=== PATIENT | female | born 1980 | race Two or more races ===

== ENCOUNTER 2022-03-18 12:20 | Emergency (ER) | payer MEDICAID, SELFPAY ==
--- NOTE | ~2022-03-18 | XR_ITS ---
EXAMINATION: XR LUMBOSACRAL SPINE CLINICAL INFORMATION: Low back pain. COMPARISON: 11/27/2016 lumbar spine radiographs. TECHNIQUE: Three views of the lumbosacral spine. FINDINGS: The vertebral bodies and posterior elements are normal. Minimal multilevel marginal osteophyte formation. The disc spaces are preserved and the vertebral alignment is normal. The paraspinal soft tissues are normal. XR/XR lumbar spine 2-3V IMPRESSION: Unremarkable lumbar spine.
[2022-03-18 12:23] VITALS: BP 116/68; PULSE 71; RESP 18; TEMP 35.9; O2SAT 99; BMI 31.8
--- NOTE | 2022-03-18 13:06 | ED.BACK ---
HPI - Back Pain/Injury General Chief Complaint: Back Pain/Injury Stated Complaint: Low Back Pain No Injury Time Seen by Provider: 03/18/22 13:06 Source: patient Mode of arrival: ambulatory Limitations: no limitations History of Present Illness HPI Narrative: 41 y/o female with history of chronic low back pain x15 years s/p epidural who presents to the ER with an acute exacerbation for the last 5 days. She reports the pain started 5 days ago after she was trying to restrain her large dog who kept pulling on the leash. She felt the right lower portion of her back get pulled and she has had pain since. She reports the pain shoots down her right leg when she walks. She has a hard time changing positions and sleeping because of the pain. She has been taking naproxen and baclofen with minimal relief. She denies bowel or bladder in continence, leg weakness or saddle paresthesias. MD elicited complaint: back pain and back injury Pertinent past history: prior back pain Onset (ago): day(s) (5) Timing: progressively worsening Severity: severe Pain scale (0-10): 8 Similar Symptoms Previously: Yes Quality: sharp, spasming and throbbing Location: right lower back Radiation: buttocks and right upper leg Exacerbating factors: movement and walking Relieving factors: immobilization Context: turning/twisting and altercation (with dog) Associated symptoms: difficulty walking Treatments prior to arrival: NSAIDS and other medications Work related injury: No Related Data Previous Rx's Medication Instructions Recorded cyclobenzaprine 10 mg tablet 10 mg PO TID PRN #14 tab 03/18/22 ibuprofen 600 mg tablet 600 mg PO Q8H PRN #20 tab 03/18/22 prednisone 20 mg tablet 40 mg PO DAILY #10 tab 03/18/22 tramadol 50 mg tablet 50 mg PO Q8H PRN #5 tab 03/18/22 Allergies Allergy/AdvReac Type Severity Reaction Status Date / Time No Known Allergies Allergy Verified 03/18/22 12:28 Review of Systems Review of Systems: Constitutional: No Fever, No Chills Cardiovascular: No Chest Pain, No SOB Gastrointestinal: No Nausea, No Vomiting, No abdominal Pain Genitourinary: No Dysuria, No Urinary Frequency, No Hematuria, No incontinece Musculoskeletal: + joint pain, + Myalgias Skin: No Skin Lesions, No rash Neuro: No Weakness, No Numbness, No Dizziness, No Headache Psych: + Anxiety/Panic, No Depression Heme/Lymph: No Bruising, No Lymphadenopathy PMFSH Social History Social History Advance Directives: Yes Advance Directives Information Provided: Yes Advance Directives on File: No Patient : No Physical Exam Vital Signs: Vital Signs: Last Vital Signs Temp 96.6 F L 03/18/22 12:23 Pulse 71 03/18/22 12:23 Resp 18 03/18/22 12:23 BP 116/68 03/18/22 12:23 Pulse Ox 99 03/18/22 12:23 BMI result Body Mass Index 31.8 Appearance: Alert. Oriented X3. Appears in pain HEENT: normal inspection CVS: Normal heart rate and rhythm. Pulses normal. Respiratory: No respiratory distress. Skin: Skin warm and dry. Normal skin color. Normal skin turgor. No rashes. Back: normal inspection, right mid/lower back with tenderness and palpable spasm. pain with spinal flexion and extension. +straight leg raise test Extremities: normal inspection. normal ROM and DTRs Neuro: Oriented X 3. No motor deficit. No sensory deficit. Slow but steady gait Course Course Course Narrative: 41 yo female presenting with right lower back pain after trying to restrain her large dog 5 days ago. Pain radiates down back of right leg consistent with possible sciatica or lumbar radiulopathy. PT requesting x-rays. No red flag symptoms of LBP, will medicate and reassess. Reevaluation(s) Reevaluation #1: Pain improved. XR normal. Stable for d/c home with anti-inflammatories, muscle relaxers and f/u with PCP. Pt agrees with plan. Critical Care Time Critical Care Time Critical Care Time: No Discharge Plan Discharge Clinical Impression: Sciatica, Strain of lumbar region Patient Disposition: Home, Self-Care Instructions: Sciatica (ED), Low Back Strain (ED) Additional Instructions: Your x-ray today was normal. No bending, lifting or twisting. Use ice several times per day for 20 minutes at a time for the next 48 hours and then change to heat. Take medications as prescribed to help with pain and discomfort. Follow up with your Primary Care Doctor this week. If your pain worsens, if you develop new numbness, tingling, weakness, loss of function or incontinence call 911 or come back to the ER right away for evaluation. Prescriptions: New ibuprofen 600 mg tablet 600 mg PO Q8H PRN (Reason: pain) Qty: 20 0RF cyclobenzaprine 10 mg tablet 10 mg PO TID PRN (Reason: muscle spasm) Qty: 14 0RF prednisone 20 mg tablet 40 mg PO DAILY Qty: 10 0RF tramadol 50 mg tablet 50 mg PO Q8H PRN (Reason: severe pain (scale score 7-10)) Qty: 5 0RF
[2022-03-18] MEDS: Acetaminophen 325 MG TABLET 975 MG PO (13:43)
[2022-03-18] MEDS: oxyCODONE HCl Immed Release 5 MG TABLET PO (13:44)
[2022-03-18 14:52] VITALS: RESP 17
== END 2022-03-18 14:56 | disposition home or self-care (01) ==
PROVIDERS: Emergency Provider Emergency Medicine; PCP Internal Medicine
DX: S39.012A Strain of muscle, fascia and tendon of lower back, initial encounter (principal); M54.30 Sciatica, unspecified side; X50.1XXA Overexertion from prolonged static or awkward postures, initial encounter; Y93.9 Activity, unspecified; Y92.9 Unspecified place or not applicable; Y99.9 Unspecified external cause status
CPT/HCPCS: 72100; 99283; 99284

== ENCOUNTER 2022-09-01 16:48 | Emergency (ER) | payer MEDICAID, SELFPAY ==
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
--- NOTE | ~2022-09-01 | XR_ITS ---
EXAMINATION: XR HIP, RIGHT CLINICAL INFORMATION: Right hip pain status post fall COMPARISON: None TECHNIQUE: Two views of the right hip. One view of the pelvis. FINDINGS: No acute fracture or dislocation. Joint spaces are maintained. Calcified phleboliths in the pelvis. XR/XR hip RT min 2V IMPRESSION: No acute osseous abnormality.
[2022-09-01 17:00] VITALS: BP 125/81; PULSE 99; RESP 20; TEMP 36.7; O2SAT 98; BMI 33.8
[2022-09-01 18:21] LABS: MANUAL DIFF FLAG NO
[2022-09-01 18:23] LABS: Basophils Absolute Auto 0.1 X10*3/uL (0.0-0.2); Basophils Percent Auto 0.5 % (0-2); Eosinophils Absolute Auto 0.1 X10*3/uL (0.0-0.4); Eosinophils Percent Auto 0.5 % (0-4); Hematocrit 40.5 % (37.0-47.0); Hemoglobin 13.6 g/dl (12.0-16.0); Imm Gran Abs Auto 0.04 X10*3/uL (0.00-0.03); Imm Gran Pct Auto 0.3 % (0.0-0.4); Lymphocytes Absolute Auto 1.9 X10*3/uL (1.2-4.9); Lymphocytes Percent Auto 14.2 % (20-40); Mean Corpuscular HGB Conc 33.6 g/dl (31.0-35.0); Mean Corpuscular Hemoglobin 28.8 pg (27.0-33.0); Mean Corpuscular Volume 85.6 fL (80.0-98.0); Mean Platelet Volume 10.6 fL (9.4-12.3); Monocytes Absolute Auto 0.6 X10*3/uL (0.1-1.2); Monocytes Percent Auto 4.3 % (2-11); Neutrophils Absolute Auto 10.6 x10*3/uL (2.0-8.3); Neutrophils Percent Auto 80.2 % (45-73); Platelet Count 276 X10*3/uL (160-400); Red Blood Count 4.73 X10*6/uL (4.20-5.50); Red Cell Distribution Width 12.9 % (11.0-16.0); White Blood Count 13.3 X10*3/uL (4.8-10.8)
[2022-09-01 18:24] LABS: Amphetamine Screen Urine Not Detected (Not Detect); Barbiturates, Urine Not Detected (Not Detect); Benzodiazepines Screen Urine Not Detected (Not Detect); Cannabinoid Screen Urine Not Detected (Not Detect); Cocaine Screen Urine Not Detected (Not Detect); Fentanyl, urine Not Detected (Not Detect); Opiate Screen Urine Not Detected (Not Detect); Phencyclidine Screen Urine Not Detected (Not Detect)
[2022-09-01 18:28] LABS: COVID-19 Test Negative (Negative)
--- NOTE | 2022-09-01 18:33 | ED.GENADULT ---
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 <YENIFER George Last Filed: 09/01/22 20:47> Prescriptions: New lidocaine 5 % adhesive patch,medicated 1 patch topical DAILY PRN (Reason: pain) Qty: 15 0RF Rx Instructions: leave on most painful area for up to 12 hrs No Action oxcarbazepine 600 mg tablet 1,200 mg PO QAM oxcarbazepine 600 mg tablet 1,800 mg PO BEDTIME <YENIFER George Last Filed: 09/01/22 20:47> Referrals: Madeline Ferro MD [Primary Care Provider] - 2 days <YENIFER George Last Filed: 09/01/22 20:47> Stand Alone Forms: Work/School Release <YENIFER George Last Filed: 09/01/22 20:47>
[2022-09-01 18:35] LABS: Ethanol < 10 mg/dL
[2022-09-01 18:38] LABS: Alanine Aminotransferase 16 U/L (0-31); Albumin Level 4.5 g/dL (3.5-5.0); Alkaline Phosphatase 126 U/L (39-117); Anion Gap 14 (12-20); Aspartate Amino Transferase 20 U/L (5-31); Bilirubin Total 0.2 mg/dL (0.0-1.0); Blood Urea Nitrogen 11 mg/dL (9-16); Calcium 9.2 mg/dL (8.4-10.2); Carbon Dioxide 28 mmol/L (22-29); Chloride 102 mmol/L (96-108); Creatinine Clr Calc Pharmacy 97.5; Estimated Glomerular Filt Rate > 60; Glucose Random 137 mg/dL (60-115); Potassium 4.4 mmol/L (3.3-5.1); Sodium 140 mmol/L (135-145); Total Protein 7.6 g/dL (6.5-8.0)
[2022-09-01] MEDS: diazePAM 2 MG TABLET PO (18:59)
[2022-09-01 19:29] LABS: HCG Quantitative < 2 mIU/mL
[2022-09-01] MEDS: OXcarbazepine 300 MG TABLET 1800 MG PO (21:46)
[2022-09-02 00:18] VITALS: BP 104/59; PULSE 78; RESP 16; TEMP 36.5; O2SAT 98
== END 2022-09-02 00:58 | disposition home or self-care (01) ==
PROVIDERS: Physician Assistant Medical; Emergency Provider Emergency Medicine Emergency Medical Services; PCP Internal Medicine
DX: R07.89 Other chest pain (principal); M54.50 Low back pain, unspecified; R10.9 Unspecified abdominal pain; R51.9 Headache, unspecified; M54.6 Pain in thoracic spine; M54.2 Cervicalgia; M25.551 Pain in right hip; Z20.822 Contact with and (suspected) exposure to COVID-19; Z79.899 Other long term (current) drug therapy
CPT/HCPCS: 36415; 70450; 71250; 72125; 73502; 74176; 80053; 80307; 82077; 84702; 85025; 87635; 99283; 99284

== ENCOUNTER 2023-02-17 10:36 | Emergency (ER) | payer OTHER, SELFPAY ==
--- NOTE | ~2023-02-17 | XR_ITS ---
Examination: 1. Radiographs left humerus 2. Radiographs lumbar spine 3. Radiographs left hip 4. Radiographs left knee INDICATION: Injury COMPARISON: Lumbar spine x-rays November 27, 2016 TECHNIQUE: 2 views of the left humerus, 3 views of the lumbar spine, 2 views of the left hip (including frontal pelvis), and 4 views of the left knee were obtained. FINDINGS: Left humerus: No fracture of the left humerus. The left shoulder and elbow are grossly unremarkable. No radiopaque foreign body. Lumbar spine: Normal alignment of the lumbar spine. Lumbar vertebral body heights and disc spaces are well-maintained. Tiny osteophytes are scattered throughout the lumbar spine. Left hip: Visualized portion of the proximal left femur demonstrate no fracture. Left femoral head is well-seated within the acetabulum. Left femoral acetabular joint space is well-maintained. The pelvic ring is intact. Punctate calcifications within the pelvis are likely vascular in nature. Left knee: No fracture or dislocation of the left knee. No suprapatellar joint effusion. No significant degenerative changes. No focal soft tissue swelling of the anterior knee. XR/XR lumbar spine 2-3V IMPRESSION: 1. Unremarkable radiographs of the left humerus. 2. Mild degenerative changes of the lumbar spine without compression deformity. 3. Unremarkable radiographs of the left hip and left knee.
--- NOTE | ~2023-02-17 | XR_ITS ---
Examination: 1. Radiographs left humerus 2. Radiographs lumbar spine 3. Radiographs left hip 4. Radiographs left knee INDICATION: Injury COMPARISON: Lumbar spine x-rays November 27, 2016 TECHNIQUE: 2 views of the left humerus, 3 views of the lumbar spine, 2 views of the left hip (including frontal pelvis), and 4 views of the left knee were obtained. FINDINGS: Left humerus: No fracture of the left humerus. The left shoulder and elbow are grossly unremarkable. No radiopaque foreign body. Lumbar spine: Normal alignment of the lumbar spine. Lumbar vertebral body heights and disc spaces are well-maintained. Tiny osteophytes are scattered throughout the lumbar spine. Left hip: Visualized portion of the proximal left femur demonstrate no fracture. Left femoral head is well-seated within the acetabulum. Left femoral acetabular joint space is well-maintained. The pelvic ring is intact. Punctate calcifications within the pelvis are likely vascular in nature. Left knee: No fracture or dislocation of the left knee. No suprapatellar joint effusion. No significant degenerative changes. No focal soft tissue swelling of the anterior knee. XR/XR hip LT w PEL1V IMPRESSION: 1. Unremarkable radiographs of the left humerus. 2. Mild degenerative changes of the lumbar spine without compression deformity. 3. Unremarkable radiographs of the left hip and left knee.
--- NOTE | ~2023-02-17 | XR_ITS ---
Examination: 1. Radiographs left humerus 2. Radiographs lumbar spine 3. Radiographs left hip 4. Radiographs left knee INDICATION: Injury COMPARISON: Lumbar spine x-rays November 27, 2016 TECHNIQUE: 2 views of the left humerus, 3 views of the lumbar spine, 2 views of the left hip (including frontal pelvis), and 4 views of the left knee were obtained. FINDINGS: Left humerus: No fracture of the left humerus. The left shoulder and elbow are grossly unremarkable. No radiopaque foreign body. Lumbar spine: Normal alignment of the lumbar spine. Lumbar vertebral body heights and disc spaces are well-maintained. Tiny osteophytes are scattered throughout the lumbar spine. Left hip: Visualized portion of the proximal left femur demonstrate no fracture. Left femoral head is well-seated within the acetabulum. Left femoral acetabular joint space is well-maintained. The pelvic ring is intact. Punctate calcifications within the pelvis are likely vascular in nature. Left knee: No fracture or dislocation of the left knee. No suprapatellar joint effusion. No significant degenerative changes. No focal soft tissue swelling of the anterior knee. XR/XR humerus LT IMPRESSION: 1. Unremarkable radiographs of the left humerus. 2. Mild degenerative changes of the lumbar spine without compression deformity. 3. Unremarkable radiographs of the left hip and left knee.
--- NOTE | ~2023-02-17 | XR_ITS ---
Examination: 1. Radiographs left humerus 2. Radiographs lumbar spine 3. Radiographs left hip 4. Radiographs left knee INDICATION: Injury COMPARISON: Lumbar spine x-rays November 27, 2016 TECHNIQUE: 2 views of the left humerus, 3 views of the lumbar spine, 2 views of the left hip (including frontal pelvis), and 4 views of the left knee were obtained. FINDINGS: Left humerus: No fracture of the left humerus. The left shoulder and elbow are grossly unremarkable. No radiopaque foreign body. Lumbar spine: Normal alignment of the lumbar spine. Lumbar vertebral body heights and disc spaces are well-maintained. Tiny osteophytes are scattered throughout the lumbar spine. Left hip: Visualized portion of the proximal left femur demonstrate no fracture. Left femoral head is well-seated within the acetabulum. Left femoral acetabular joint space is well-maintained. The pelvic ring is intact. Punctate calcifications within the pelvis are likely vascular in nature. Left knee: No fracture or dislocation of the left knee. No suprapatellar joint effusion. No significant degenerative changes. No focal soft tissue swelling of the anterior knee. XR/XR knee LT 3V IMPRESSION: 1. Unremarkable radiographs of the left humerus. 2. Mild degenerative changes of the lumbar spine without compression deformity. 3. Unremarkable radiographs of the left hip and left knee.
[2023-02-17 10:41] VITALS: BP 104/67; PULSE 75; RESP 16; TEMP 36.1; O2SAT 99; BMI 33.8
[2023-02-17] MEDS: Acetaminophen 325 MG TABLET 975 MG PO (12:57)
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
== END 2023-02-17 14:13 | disposition home or self-care (01) ==
PROVIDERS: Emergency Provider Emergency Medicine; PCP Internal Medicine
DX: S39.012A Strain of muscle, fascia and tendon of lower back, initial encounter (principal); S83.92XA Sprain of unspecified site of left knee, initial encounter; S50.02XA Contusion of left elbow, initial encounter; V43.52XA Car driver injured in collision with other type car in traffic accident, initial encounter; Y93.89 Activity, other specified; Y92.410 Unspecified street and highway as the place of occurrence of the external cause; Y99.9 Unspecified external cause status
CPT/HCPCS: 72100; 73060; 73502; 73562; 99283

== ENCOUNTER 2023-03-05 14:18 | Outpatient (REF) | payer OTHER, MEDICAID, SELFPAY ==
--- NOTE | ~2023-03-05 | XR_ITS ---
EXAMINATION: XR WRIST, RIGHT CLINICAL INFORMATION: Right wrist pain COMPARISON: Right wrist films 05/19/2019. TECHNIQUE: Right wrist is imaged in 5 views. FINDINGS: Normal bony mineralization. Ulnar variance is neutral. There is no carpal joint narrowing or erosive change or chondrocalcinosis. Pronator quadratus fat pad appears normal. No fracture, dislocation, destructive process. XR/XR wrist RT min 3V IMPRESSION: Normal right wrist.
== END 2023-03-05 14:19 | disposition home or self-care (01) ==
LOC: HO.XRAY 14:18
PROVIDERS: PCP Internal Medicine; Visit Provider Internal Medicine
DX: M25.531 Pain in right wrist (principal)
CPT/HCPCS: 73110

== ENCOUNTER 2023-06-26 10:39 | Outpatient (REF) | payer OTHER, MEDICAID, SELFPAY ==
[2023-06-26 11:37] LABS: MANUAL DIFF FLAG NO
[2023-06-26 11:38] LABS: Basophils Percent Auto 0.6 % (0-2); Eosinophils Absolute Auto 0.1 X10*3/uL (0.0-0.4); Hematocrit 38.5 % (37.0-47.0); Hemoglobin 12.9 g/dl (12.0-16.0); Imm Gran Abs Auto 0.01 X10*3/uL (0.00-0.03); Imm Gran Pct Auto 0.1 % (0.0-0.4); Lymphocytes Absolute Auto 2.2 X10*3/uL (1.2-4.9); Lymphocytes Percent Auto 32.1 % (20-40); Mean Corpuscular HGB Conc 33.5 g/dl (31.0-35.0); Mean Corpuscular Hemoglobin 28.7 pg (27.0-33.0); Mean Corpuscular Volume 85.6 fL (80.0-98.0); Mean Platelet Volume 10.5 fL (9.4-12.3); Monocytes Absolute Auto 0.4 X10*3/uL (0.1-1.2); Monocytes Percent Auto 5.8 % (2-11); Neutrophils Absolute Auto 4.1 x10*3/uL (2.0-8.3); Neutrophils Percent Auto 60.4 % (45-73); Platelet Count 260 X10*3/uL (160-400); Red Cell Distribution Width 12.6 % (11.0-16.0); White Blood Count 6.7 X10*3/uL (4.8-10.8)
[2023-06-26 12:13] LABS: Estimated Average Glucose 97 mg/dL
[2023-06-26 12:47] LABS: Alanine Aminotransferase 11 U/L (0-31); Albumin Level 4.3 g/dL (3.5-5.0); Alkaline Phosphatase 113 U/L (39-117); Anion Gap 12 (12-20); Aspartate Amino Transferase 14 U/L (5-31); Bilirubin Direct 0.1 mg/dL (0.0-0.5); Bilirubin Total 0.3 mg/dL (0.0-1.0); Blood Urea Nitrogen 9 mg/dL (9-16); Calcium 9.2 mg/dL (8.4-10.2); Carbon Dioxide 26 mmol/L (22-29); Chloride 107 mmol/L (96-108); Cholesterol 210 mg/dL; Estimated Glomerular Filt Rate > 60; Glucose Random 87 mg/dL (60-115); HDL Cholesterol 47 mg/dL; LDL Cholesterol Calculated 150 mg/dl; Potassium 4.3 mmol/L (3.3-5.1); Sodium 141 mmol/L (135-145); Total Protein 7.7 g/dL (6.5-8.0); Triglycerides 68 mg/dL
[2023-06-26 13:10] LABS: Vitamin D 25-OH Total 21.4 ng/mL (>30)
== END 2023-06-26 10:40 | disposition home or self-care (01) ==
LOC: HO.HHCL 10:39
PROVIDERS: Visit Provider Internal Medicine
DX: Z00.00 Encounter for general adult medical examination without abnormal findings (principal); G40.909 Epilepsy, unspecified, not intractable, without status epilepticus
CPT/HCPCS: 36415; 80048; 80061; 80076; 82306; 83036; 85025

== ENCOUNTER 2024-02-15 12:26 | Emergency (ER) | payer MEDICAID, SELFPAY ==
--- NOTE | ~2024-02-15 | XR_ITS ---
EXAMINATION: XR LUMBOSACRAL SPINE CLINICAL INFORMATION: Atraumatic low lumbar pain. COMPARISON: Radiograph lumbar spine 02/17/2023. TECHNIQUE: Three views of the lumbosacral spine. FINDINGS: No evidence of acute compression deformity or traumatic subluxation. Stable trace retrolisthesis of L5 on S1. Unchanged mild intervertebral disc height loss and facet arthropathy at L4-L5 and L5-S1 with suggestion of mild neural foraminal encroachment at L5-S1. No significant paraspinal soft tissue abnormality. XR/XR lumbar spine 2-3V IMPRESSION: 1. No acute fractures or traumatic subluxation. 2. Mild lumbar spondylosis at L4-L5 and L5-S1.
[2024-02-15 13:07] VITALS: BP 118/75; BP 140/100; PULSE 80; PULSE 84; RESP 20; TEMP 36.8; O2SAT 100; O2SAT 98; BMI 29.0
[2024-02-15] MEDS: Lidocaine 4 % Patch ADH..PATCH 1 PATCH TRANSDERMA (14:27)
[2024-02-15] MEDS: Ketorolac Tromethamine 30 MG/ML VIAL IM (14:27)
[2024-02-15] MEDS: Cyclobenzaprine HCl 10 MG TABLET PO (14:28)
[2024-02-15 14:32] VITALS: BP 130/65; PULSE 66; RESP 20; O2SAT 100
--- NOTE | 2024-02-15 15:21 | ED_ITS ---
HPI - Back Pain/Injury General Chief Complaint: Back Pain/Injury Stated Complaint: Back Pain Time Seen by Provider: 02/15/24 12:55 Source: patient, EMS, RN notes reviewed and old records reviewed Mode of arrival: EMS Limitations: no limitations History of Present Illness HPI Narrative: 43 year old female with no significant pmhx presents to the ED today via EMS for evaluation of acute low back pain beginning just prior to arrival. She states she had just walked into her room and went to reach for something on her bed when she felt sudden pain to her right lower back. Admits to feeling a popping sensation. She immediately called EMS and was transported to the hospital. She now reports that pain is beginning to radiate down her right leg. She has not been able to ambulate since due to pain. She did not take any [id number] pain medications prior to arrival. Denies history of chronic back problems. Denies injury or trauma to the back. Denies previous spinal surgeries. Denies IV drug use. Denies fever, chills, numbness/tingling/weakness of the lower extremities, saddle anesthesia, bowel or bladder incontinence or retention, dysuria, hematuria. Related Data Home Medications Medication Instructions Recorded Confirmed oxcarbazepine 600 mg tablet 1,200 mg PO QAM 09/01/22 09/01/22 oxcarbazepine 600 mg tablet 1,800 mg PO BEDTIME 09/01/22 09/01/22 Previous Rx's Medication Instructions Recorded lidocaine 5 % topical patch 1 patch topical DAILY PRN pain #15 09/02/22 ea ibuprofen 600 mg tablet 600 mg PO Q6H PRN pain #20 tabs 02/17/23 tramadol 50 mg tablet 50 mg PO Q8H PRN pain #10 tabs 02/17/23 cyclobenzaprine 5 mg tablet 5 mg PO Q8H PRN muscle spasm #10 02/15/24 tabs lidocaine 5 % topical patch 1 patch topical DAILY #15 ea 02/15/24 (Lidoderm) naproxen 500 mg tablet 500 mg PO Q8-12H PRN pain (scale 02/15/24 score 4-6) #14 tabs nitrofurantoin macrocrystal 100 mg 100 mg PO BID 5 days #10 caps 02/15/24 capsule Allergies Allergy/AdvReac Type Severity Reaction Status Date / Time No Known Allergies Allergy Verified 02/15/24 13:10 Review of Systems Review of Systems: Constitutional: No fever, chills, fatigue, night sweats, weight changes ENT/Mouth: No ear pain, hearing loss, nasal congestion, sinus pain, rhinorrhea, sore throat Eyes: No eye pain, swelling, redness, vision changes, discharge Cardio: No chest pain, palpitations, HALEY, orthopnea, peripheral edema Pulm: No SOB, cough, sputum, wheezing, dyspnea, hemoptysis GI: No nausea, vomiting, hematemesis, abdominal pain, diarrhea, constipation, hematochezia, melena : No irregular bleeding, dysuria, frequency, urgency, hesitancy, hematuria, flank pain, urinary flow changes, urinary incontinence or retention MSK: +back pain, No neck pain, joint pain, myalgias Skin: No lesions, rashes Neuro: No weakness, numbness, paresthesias, LOC, dizziness, headache All other systems reviewed and are negative. [facility] Past Medical History Attestation statement: The following information was validated with the patient. Source: old records reviewed and nursing notes reviewed Social History Social History Advance Directives: No Advance Directives Information Provided: Yes Physical Exam Vital Signs: Vital Signs: Last Vital Signs Temp 98.2 F 02/15/24 16:57 Pulse 59 02/15/24 16:57 Resp 18 02/15/24 16:57 BP 107/60 02/15/24 16:57 Pulse Ox 99 02/15/24 16:57 O2 Del Method Room Air 02/15/24 16:57 BMI result Body Mass Index 29.0 Vital signs stable, afebrile Const: General: cooperative, healthy appearing, comfortable, no acute distress, alert, awake and Physically active Orientation/consciousness: patient oriented x3 HEENT: Head: Yes normal to inspection, Yes normocephalic and Yes atraumatic Eyes: General: appearance normal, both eyes and all related structures Conjunctivae: conjunctivae normal Sclerae: sclerae normal Pupils: Equal, round and reactive pupils present EOM: EOMs intact bilaterally Neck: Other: + no cervical midline spinous tenderness or step-off deformity. Neck: Yes normal visual inspection, Yes full ROM and Yes no meningeal signs Resp: Effort & Inspection: normal respiratory effort Auscultation: clear to auscultation bilaterally Cardio: Rate: regular rate Rhythm: regular rhythm GI: Inspection: Yes normal to inspection Palpation (GI): Soft to palpation and nontender : General: Yes no CVA tenderness Back/Spine/Pelvis: Other: + no midline spinous tenderness or step- off deformity. there is right lumbar paraspinous tenderness to palpation without palpable deformity or masses. Back: no CVA tenderness Skin: General skin exam: no rashes or lesions noted Neuro: Other: Strength 5/5 intact throughout.? No saddle anesthesia.? Sensation intact to light touch.? Neurovascular intact distally.? Antalgic gait secondary to pain. General: patient oriented x3 and no meningeal signs Cranial nerves: Yes Equal, round and reactive pupils present Gait exam (Neuro): Normal gait present Deep tendon reflexes (DTR's): Right patellar reflex intensity grade: 2+ and Left patellar reflex intensity grade: 2+ Pupils: Normal pupillary reactivity/response: bilateral Course Course Course Narrative: 1635-- On re-evaluation, patient reports pain improvement with lidocaine, Toradol, Flexeril. She has been ambulating to bathroom with steady gait with some assistance from hydro plant technician. I discussed imaging results with patient. Patient likely has MSK sprain/strain of the lumbar paraspinal muscles. Will send Flexeril, naproxen, lidocaine patches to pharmacy. Urine with positive nitrites and 4+ bacteria. negative. Will send nitrofurantoin to pharmacy to treat for UTI. Patient has remained stable throughout ED visit today. Discussed worrisome signs and symptoms and when to return to the ED. All questions answered at this time. Patient is agreeable with disposition and stabl e for discharge. Medications Administered Discontinued Medications Generic Name Dose Route Start Last Admin Trade Name Freq PRN Reason Stop Dose Admin Cyclobenzaprine HCl 10 mg 02/15/24 13:34 02/15/24 14:28 Cyclobenzaprine Hcl 10 Mg Tablet PO 02/15/24 13:35 10 mg ONCE ONE Administration Ketorolac Tromethamine 30 mg 02/15/24 13:34 02/15/24 14:27 Ketorolac Tromethamine 30 Mg/Ml Vial IM 02/15/24 13:35 30 mg ONCE ONE Administration Lidocaine 1 patch 02/15/24 13:34 02/15/24 14:27 Lidocaine 4 % Patch Adh..Patch TRANSDERMA 02/15/24 13:35 1 patch ONCE ONE Administration Protocol Medical Decision Making Medical Decision Making [facility] Narrative: 43 year old female with no significant pmhx presents to the ED today via EMS for evaluation of acute low back pain beginning just prior to arrival. Vital signs are stable, afebrile. Patient is lying flat on her back on the exam bed, tearful. no midline spinous tenderness or step-off deformity. there is right lumbar paraspinous tenderness to palpation without palpable deformity or masses. Strength 5/5 intact throughout.? No saddle anesthesia.? Sensation intact to light touch.? Neurovascular intact distally.? Antalgic gait secondary to pain. 2+ patellar DTRs bilaterally. Differential diagnosis includes muscle sprain/strain, muscle spasm, fracture, subluxation, disc herniation, sciatica, UTI, nephrolithiasis, renal colic. Unli ryder cord compression, cauda equina, Guillain-Pownal, epidural abscess. Plan for imaging, pain control, and re-evaluation. Differential Diagnosis Differential Diagnoses: The differential diagnosis associated with the presentation includes as above Admission/Observation Not indicated. Lab Data [facility] Lab Attestation statement: I reviewed the patient's lab results. as above. Labs: Lab Results 02/15/24 Range/Units 15:20 Urine Color Yellow Urine Appearance Clear Urine pH 8.0 (5.0-9.0) Ur Specific [place] 1.015 (1.005-1.025) Urine Protein Negative (Neg-Trace) mg/dL Urine Glucose (UA) Negative (Negative) mg/dL Urine Ketones Negative (Negative) mg/dL Urine Blood Negative (Negative) Urine Nitrite Positive H (Negative) Ur Leukocyte Esterase Negative (Negative) Urine RBC 0-2 (0-2) /HPF Urine WBC 0-5 (0-5) /HPF Ur Squamous Epith Cells 0-2 (0-2) /HPF Urine Bacteria 4+ (None Seen) Hyaline Casts 0-2 (0-2) /LPF Urine Test NEGATIVE (NEGATIVE) Independent Interpretation I performed an independent interpretation of an: Plain X-Ray Interpretation: I have reviewed x-ray lumbar spine and agree with radiologist's interpretation. Radiology Impression Discussion of test interpretation with radiology: I have reviewed the radiologist's reading. Radiologist Impression: EXAMINATION: XR LUMBOSACRAL SPINE CLINICAL INFORMATION: Atraumatic low lumbar pain. COMPARISON: Radiograph lumbar spine 02/17/2023. TECHNIQUE: Three views of the lumbosacral spine. FINDINGS: No evidence of acute compression deformity or traumatic subluxation. Stable trace retrolisthesis of L5 on S1. Unchanged mild intervertebral disc height loss and facet arthropathy at L4-L5 and L5-S1 with suggestion of mild neural foraminal encroachment at L5-S1. No significant paraspinal soft tissue abnormality. XR/XR lumbar spine 2-3V IMPRESSION: 1. No acute fractures or traumatic subluxation. 2. Mild lumbar spondylosis at L4-L5 and L5-S1. External Record Review External record reviewed: Inpatient record Prescription Management I considered prescription management with: Pain Medication, Antibiotic (Nitrofurantoin) and Other (Muscle relaxer, steroid) Social Determinants Patient?s care significantly limited by Social Determinants of Health including: Other Social Determinant of Health Discharge Plan Discharge Clinical Impression: Strain of lumbar region, Lumbar radiculopathy, UTI (urinary tract infection) Patient Disposition: Home, Self-Care Instructions: Muscle Strain (ED), Urinary Tract Infection in Women (ED), Acute Low Back Pain (ED), Lower Back Exercises (ED) Additional Instructions: Your imaging studies today did not show acute fracture. Your pain is likely musculoskeletal. Avoid bending, lifting, or twisting. Use ice several times per day for 20 minutes at a time for the next 48 hours and then change to heat. Flexeril is a muscle relaxer. Take this at night as it makes you drowsy. Do not drive, drink alcohol, or operate machinery while taking it. Naproxen is an anti-inflammatory / pain medication. Take with food. Do not take this with Ibuprofen. Lidoderm patches are numbing patches. Apply to painful areas. In addition you may take Tylenol at home. If your pain worsens, if you develop new numbness, tingling, weakness, loss of bowel or bladder function call 911 or return to the ER immediately for evaluation. Your urine today was positive for infection. Nitrofurantoin is an antibiotic that has been sent to your pharmacy. Take this as prescribed and do not miss any doses. You must complete the entire course of antibiotics. If you do not, there is a risk of the infection coming back or worsening. Follow up with your primary care provider as needed. If you develop a fever or new/ worsening symptoms call 911 or come back to the ER for further evaluation. Prescriptions: New nitrofurantoin macrocrystal 100 mg capsule 100 mg PO BID 5 Days Qty: 10 0RF Rx Instructions: must administer with a meal/food cyclobenzaprine 5 mg tablet 5 mg PO Q8H PRN (Reason: muscle spasm) Qty: 10 0RF lidocaine [Lidoderm] 5 % adhesive patch,medicated 1 patch topical DAILY Qty: 15 0RF Rx Instructions: leave on most painful area for up to 12 hrs naproxen 500 mg tablet 500 mg PO Q8-12H PRN (Reason: pain (scale score 4-6)) Qty: 14 0RF No Action oxcarbazepine 600 mg tablet 1,200 mg PO QAM oxcarbazepine 600 mg tablet 1,800 mg PO BEDTIME lidocaine 5 % adhesive patch,medicated 1 patch topical DAILY PRN (Reason: pain) Qty: 15 0RF Rx Instructions: leave on most painful area for up to 12 hrs ibuprofen 600 mg tablet 600 mg PO Q6H PRN (Reason: pain) Qty: 20 0RF tramadol 50 mg tablet 50 mg PO Q8H PRN (Reason: pain) Qty: 10 0RF [place] [facility] [place] [facility] [place] [facility]] Stand Alone Forms: Work/School Release Interventions: ED Discharge Assessment Last Done: 02/15/24 16:57 Discharge Date/Time: 02/15/24 16:58
[2024-02-15 15:28] LABS: Appearance Urine Clear; Color Urine Yellow; Glucose Urine UA Negative (Negative); Leukocyte Esterase Urine Negative (Negative); Nitrite Urine Positive (Negative); Specific Gravity - Urine 1.015 (1.005-1.025); UMIC TRIGGER UACC YES; Urine Blood Negative (Negative); Urine Ketones Negative (Negative); Urine Protein Negative (Neg-Trace)
[2024-02-15 15:36] LABS: UPreg QC Valid YES; Urine Pregnancy NEGATIVE (NEGATIVE)
[2024-02-15 16:30] LABS: Bacteria Urine 4+ (None Seen); Hyaline Casts Urine 0-2 /LPF (0-2); RBC Urine 0-2 /HPF (0-2); Squamous Epithelial Cell Urine 0-2 /HPF (0-2); UACC Culture Trigger YES; WBC Urine 0-5 /HPF (0-5)
[2024-02-15 16:48] VITALS: BP 107/60; PULSE 59; RESP 18; TEMP 36.8; O2SAT 99
[2024-02-15 16:57] VITALS: BP 107/60; PULSE 59; RESP 18; TEMP 36.8; O2SAT 99
== END 2024-02-15 16:58 | disposition home or self-care (01) ==
PROVIDERS: Physician Assistant Medical; Emergency Provider Emergency Medicine Emergency Medical Services; PCP Internal Medicine
DX: M54.16 Radiculopathy, lumbar region (principal); N39.0 Urinary tract infection, site not specified; S39.012A Strain of muscle, fascia and tendon of lower back, initial encounter; X58.XXXA Exposure to other specified factors, initial encounter; Y93.9 Activity, unspecified; Y92.9 Unspecified place or not applicable; Y99.9 Unspecified external cause status
CPT/HCPCS: 72100; 81001; 81025; 87086; 87088; 87186; 96372; 99283; 99284; J1885

== ENCOUNTER 2024-03-09 | Emergency (ER) | payer MEDICAID, SELFPAY ==
[2024-03-09 00:22] VITALS: BP 106/53; PULSE 106; RESP 20; TEMP 36.1; O2SAT 100; BMI 35.4
--- NOTE | 2024-03-09 00:32 | PC.NURSE ---
Addendum entered by Corina Pratt 03/09/24 00:34: community product specialist aware of patient status & inability to obtain EKG or labs at this time. Original Note: Attempted but unable to perform EKG due to the patient flailing. Intermittently yelling out. Forgetful of where she is and what she's experiencing. With family at this time. Occasionally standing up and screaming. Swatting at staff during attempted EKG & lab draw.
--- NOTE | 2024-03-09 01:24 | PC.NURSE ---
Patient left without treatment. This RN encouraged the patient and family to remain for evaluation, but patient and family both refused. Patient stated I just want to sleep, I don't need to be here anymore. Refused and left ED without treatment/ED provider evaluation. procedures rn aware.
== END 2024-03-09 01:25 | disposition left against medical advice (07) ==
PROVIDERS: Emergency Provider Emergency Medicine; PCP Internal Medicine
DX: R41.0 Disorientation, unspecified (principal)
CPT/HCPCS: 99281

== ENCOUNTER 2024-03-29 17:56 | Emergency (ER) | payer MEDICAID, SELFPAY ==
--- NOTE | ~2024-03-29 | XR_ITS ---
EXAMINATION: XR ANKLE, RIGHT CLINICAL INFORMATION: Twisted ankle COMPARISON: None available. TECHNIQUE: AP, lateral, and mortise views of the right ankle. FINDINGS: Acute, nondisplaced avulsion fracture of the base of the fifth metatarsal (pseudo-Pitts fracture). No evidence of malalignment. Ankle mortise is congruent. Talar dome is intact. Incidental os peroneum No tibiotalar joint effusion. Soft tissues are unremarkable. XR/XR ankle RT 2V IMPRESSION: Acute, nondisplaced avulsion fracture of the base of the fifth metatarsal (pseudo-Pitts fracture).
[2024-03-29 19:09] VITALS: BP 119/75; PULSE 67; RESP 16; TEMP 36.4; O2SAT 99; BMI 35.1
--- NOTE | 2024-03-29 20:27 | ED.LOWEXIN ---
HPI - Extremity Injury (Lower) General Chief Complaint: Extremity Injury, Lower Stated Complaint: twisted ankle last night Time Seen by Provider: 03/29/24 19:29 Source: patient Mode of arrival: wheelchair Limitations: no limitations History of Present Illness HPI Narrative: 43-year-old female with no significant past medical history presents emergency department with complaints of right ankle pain after rolling last night. She reports she has been using [id number] ibuprofen no relief in symptoms. She reports difficulty with ambulation and range of motion secondary to pain. She denies any significant deformity, swelling, erythema, or ecchymosis. Pertinent positives and negatives discussed in the HPI Related Data Home Medications ?Medication ?Instructions ?Recorded ?Confirmed oxcarbazepine 600 mg tablet 1,200 mg PO QAM 09/01/22 09/01/22 oxcarbazepine 600 mg tablet 1,800 mg PO BEDTIME 09/01/22 09/01/22 Previous Rx's ?Medication ?Instructions ?Recorded lidocaine 5 % topical patch 1 patch topical DAILY PRN pain #15 09/02/22 ea ibuprofen 600 mg tablet 600 mg PO Q6H PRN pain #20 tabs 02/17/23 tramadol 50 mg tablet 50 mg PO Q8H PRN pain #10 tabs 02/17/23 cyclobenzaprine 5 mg tablet 5 mg PO Q8H PRN muscle spasm #10 02/15/24 tabs lidocaine 5 % topical patch 1 patch topical DAILY #15 ea 02/15/24 (Lidoderm) naproxen 500 mg tablet 500 mg PO Q8-12H PRN pain (scale 02/15/24 score 4-6) #14 tabs nitrofurantoin macrocrystal 100 mg 100 mg PO BID 5 days #10 caps 02/15/24 capsule Allergies Allergy/AdvReac Type Severity Reaction Status Date / Time No Known Allergies Allergy Verified 03/29/24 19:13 Review of Systems Review of Systems: Yes all other systems are reviewed and are negative [facility] Social History Social History Advance Directives: No Advance Directives Information Provided: No Do you have a plan to hurt others: No Plan Physical Exam Vital Signs: Vital Signs: Last Vital Signs Temp 97.6 F 03/29/24 19:09 Pulse 67 03/29/24 19:09 Resp 16 03/29/24 19:09 BP 119/75 03/29/24 19:09 Pulse Ox 99 03/29/24 19:09 O2 Del Method Room Air 03/29/24 19:09 BMI result Body Mass Index 35.1 Nursing notes and vital signs reviewed. GENERAL APPEARANCE: A&0 x 4, generally well appearing, no acute distress HENMT: Normal to inspection, atraumatic, face symmetrical. Normal external ears, nose, and oropharynx clear. EYE: PERRLA, EOM intact, structures appear normal NECK: Supple without stiffness or restricted ROM. HEART: Normal rate and regular rhythm, normal S1/S2, no M/R/G LUNGS: LS CTA, moving air well. Able to speak in complete sentences. No crackles, wheezes, or rhonchi auscultated BACK: No CVAT, no obvious deformity EXTREMITIES: Decreased range of motion right ankle. Normal capillary refill. NEUROLOGICAL: Alert and oriented, moving all 4 extremities with equal strength. CN not formally tested but appearing grossly intact. Observed to ambulate with normal gait. Cognition normal SKIN: Warm and dry without any lesions, rash, or visible sores Medical Decision Making Medical Decision Making [facility] Narrative: Old records reviewed for previous imaging, lab studies, ECGs, and notes. Patient was assessed the emergency department with no acute distress or toxicity noted. X-ray right ankle completed which I have independently interpreted as negative for acute fractures. Patient's symptoms are consistent with an acute strain or sprain an Brad wrap applied. Patient educated to rest, ice, compress, and elevate ankle for comfort. Patient is safe for discharge at this time with plan for [id number] Tylenol and/or NSAID such as ibuprofen or naproxen for fever/discomfort with dosing as per packaging. HPI, PE, diagnostics, and plan discussed with patient and family with no unanswered questions at this time. Strict return precautions given to return to the emergency department with new, worsening, or concerning emergent symptoms. Recommended to follow-up with there primary care provider in 24-48 hours for further treatment and management. Differential Diagnosis Differential Diagnoses: The differential diagnosis associated with the presentation includes But not limited to contusion, strain, sprain, fracture, dislocation Independent Interpretation I performed an independent interpretation of an: Plain X-Ray Discharge Plan Discharge Clinical Impression: Ankle sprain and strain Patient Disposition: Home, Self-Care Instructions: Ankle Sprain (ED), Ankle Strain (ED), R.I.C.E. Treatment (ED), Crutch Instructions (ED) Prescriptions: No Action oxcarbazepine 600 mg tablet 1,200 mg PO QAM oxcarbazepine 600 mg tablet 1,800 mg PO BEDTIME lidocaine 5 % adhesive patch,medicated 1 patch topical DAILY PRN (Reason: pain) Qty: 15 0RF Rx Instructions: leave on most painful area for up to 12 hrs ibuprofen 600 mg tablet 600 mg PO Q6H PRN (Reason: pain) Qty: 20 0RF tramadol 50 mg tablet 50 mg PO Q8H PRN (Reason: pain) Qty: 10 0RF nitrofurantoin macrocrystal 100 mg capsule 100 mg PO BID 5 Days Qty: 10 0RF Rx Instructions: must administer with a meal/food cyclobenzaprine 5 mg tablet 5 mg PO Q8H PRN (Reason: muscle spasm) Qty: 10 0RF lidocaine [Lidoderm] 5 % adhesive patch,medicated 1 patch topical DAILY Qty: 15 0RF Rx Instructions: leave on most painful area for up to 12 hrs naproxen 500 mg tablet 500 mg PO Q8-12H PRN (Reason: pain (scale score 4-6)) Qty: 14 0RF Referrals: Madeline Ferro MD [Primary Care Provider] - Stand Alone Forms: Work/School Release Print Language: Wallisian
[2024-03-29 21:30] VITALS: BP 113/66; PULSE 68; RESP 18; TEMP 36.6; O2SAT 100
--- NOTE | 2024-03-29 23:33 | PC.NURSE ---
pipeline technician noted Pt was not in room at time of revital. Pt LWCT approximately at 2210.
== END 2024-03-29 22:20 | disposition left against medical advice (07) ==
PROVIDERS: Emergency Provider Emergency Medicine; PCP Internal Medicine
DX: S93.401A Sprain of unspecified ligament of right ankle, initial encounter (principal); S96.911A Strain of unspecified muscle and tendon at ankle and foot level, right foot, initial encounter; X50.1XXA Overexertion from prolonged static or awkward postures, initial encounter; Y93.9 Activity, unspecified; Y92.9 Unspecified place or not applicable; Y99.9 Unspecified external cause status
CPT/HCPCS: 73600; 99282; 99283

== ENCOUNTER 2024-04-21 08:02 | Outpatient (AMB) | payer MEDICAID, SELFPAY ==
--- NOTE | 2024-04-21 08:31 | MHC.OFFVIS ---
Vital Signs 04/21/24 08:35 Height 5 ft 2 in Weight 192 lb BMI 35.1 Intake Visit Reasons: Fc- fx of 5th metatarsal bone of RT foot Intake Note: Leslie is a 43 year old female who presents today for a evaluation of her right ankle sprain/ foot , DOI 03/28/24. Patient reports she rolled her ankle when she was walking with high heel. She states that he pain is a little better, however when she is ambulating she tends to feel a bit sore. Pain is on the lateral aspect of the foot. Allergies No Known Allergies Allergy (Verified 04/21/24 08:34) HPI HPI Fc- fx of 5th metatarsal bone of RT foot: Details: 43-year-old female who presents in the office today, as a new patient, for an evaluation of right ankle pain. Patient presented to the ED on 03/29/2024 status post rolling her ankle on 03/28/2024. X-rays were obtained. She was placed in an FOUZIA wrap and encouraged to rest, ice, compress, and elevate the right ankle. While in the office today the patient reports she rolled her right ankle when walking in high heels. She reports her pain has slightly improved. However, she states when ambulating she feels a bit sore. She reports her pain is on the lateral aspect of the right foot. [facility] Social History (Updated 04/21/24 @ 08:35 by Derick Zeng) Alcohol intake: current Alcohol intake frequency: holidays/special occasions only Patient Tobacco Use Status: Never used Tobacco Current occupational status: unemployed Review of Systems Const All systems reviewed & are unremarkable except as noted in HPI and below Physical Exam Vital Signs: BMI result Body Mass Index 35.1 Const General: cooperative and no acute distress Orientation/consciousness: patient oriented x3 Resp Effort & Inspection: normal respiratory effort and able to speak in complete sentences Cardio Peripheral pulses: Peripheral pulses 2+ throughout Skin General skin exam: no rashes or lesions noted Neuro General: patient oriented x3 Extrem Other: Right foot/ankle: Mild edema over the base of the 5th metatarsal, accompanied by tenderness to palpation. Able to dorsiflex, plantarflex, pronate and supinate. Sensation intact. Pedal pulse intact. Office Procedures Fracture Care Fracture Billing Code: Fracture Billing Code Assessment & Plan Assessment & Plan (1) Toe fracture, right: Comment: Pseudo-Ren fracture right 5th metatarsal Code(s): S92.911A - Unspecified fracture of right toe(s), initial encounter for closed fracture Category: Medical Qualifiers: Encounter type: initial encounter Fracture alignment: nondisplaced Fracture type: closed Phalanx: unspecified phalanx Toe: lesser toe Qualified Code(s): S92.504A - Nondisplaced unspecified fracture of right lesser toe(s), initial encounter for closed fracture Plan Ms. Tico Montalvo is a 43-year-old female who presents in the office today, as a new patient, for an evaluation of right ankle pain. Patient presented to the ED on 03/29/2024 status post rolling her ankle on 03/28/2024. X-rays were obtained. She was placed in an FOUZIA wrap and encouraged to rest, ice, compress, and elevate the right ankle. While in the office today the patient reports she rolled her right ankle when walking in high heels. She reports her pain is on the lateral aspect of the right foot with slightly improved. However, she states when ambulating her right ankle feels a bit sore. Patient was placed in a short walking boot, off the shelf. She may weight bear as tolerated. I demonstrated exercises while in the office today she can perform at home out of the boot multiple times daily. We discussed at her follow-up appointment we will evaluate her for stiffness with the possibility of a referral to formal physical therapy. Follow-up will be in 4 weeks with repeat x-rays, or sooner if needed. X-rays of the right ankle which were obtained while in the office today and were reviewed by me, Natalie Olmedo PA-C, redemonstrated a pseudo-ren fracture of the right 5th metatarsal. X-rays of the right ankle, obtained on 03/29/2024, revealed: Acute, nondisplaced avulsion fracture of the base of the fifth metatarsal (pseudo-Ren fracture). Orders: Orders XR foot RT min 3V Today M79.673 - Pain in unspecified foot Patient Instructions: Scribed by Janessa Sage medical doctor nuclear medicine, for Natalie Olmedo PA-C on 04/21/2024 at 8:08 am, EST. Coding Level of Care Code New Pt Level 4 (28277) Diagnoses Closed nondisplaced fracture of phalanx of lesser toe of right foot, unspecified phalanx, initial encounter S92.504A Encounter type: initial encounter Fracture alignment: nondisplaced Fracture type: closed Phalanx: unspecified phalanx Toe: lesser toe CPT Codes Fracture Care - Fracture Billing Code: Fracture Billing Code ([id number])
[2024-04-21 08:35] VITALS: BMI 35.1
== END 2024-04-21 09:24 | disposition home or self-care (01) ==
PROVIDERS: PCP Internal Medicine; Visit Provider Physician Assistant
DX: S92.354A Nondisplaced fracture of fifth metatarsal bone, right foot, initial encounter for closed fracture (principal)
CPT/HCPCS: 99203

== ENCOUNTER 2024-04-21 09:53 | Outpatient (REF) | payer MEDICARE, MEDICAID, SELFPAY ==
--- NOTE | ~2024-04-21 | XR_ITS ---
EXAMINATION: XR FOOT, RIGHT CLINICAL INFORMATION: Right foot pain. COMPARISON: Multiple priors, most recent right ankle radiograph dated 03/29/2024 and right foot radiographs dated 12/26/2013. TECHNIQUE: AP, lateral, and oblique views of the right foot. FINDINGS: Redemonstration of a nondisplaced oblique fracture through the base of the fifth metatarsal with the medial aspect of the fracture line contacting the fifth tarsometatarsal articular surface. The fracture gap measures up to 0.1 cm without significant cortical step off along the articular surface. No interval new bone/callus formation. No new fracture or dislocation. No concerning lytic or blastic osseous lesion. No joint space narrowing or marginal osteophytes. No abnormal soft tissue calcification. XR/XR foot RT min 3V IMPRESSION: Nondisplaced oblique fracture through the base of the fifth metatarsal with the fracture line contacting the fifth tarsometatarsal articular surface. No significant new bone/callus formation.
== END 2024-04-21 09:54 | disposition home or self-care (01) ==
LOC: HO.HOSX 09:53
PROVIDERS: Visit Provider Physician Assistant
DX: S92.354A Nondisplaced fracture of fifth metatarsal bone, right foot, initial encounter for closed fracture (principal)
CPT/HCPCS: 73630; 99212

== ENCOUNTER 2024-04-22 08:45 | Outpatient (REF) | payer MEDICAID, SELFPAY ==
[2024-04-22 08:58] LABS: MANUAL DIFF FLAG NO
[2024-04-22 09:40] LABS: Basophils Absolute Auto 0.1 X10*3/uL (0.0-0.2); Eosinophils Absolute Auto 0.1 X10*3/uL (0.0-0.4); Eosinophils Percent Auto 1.6 % (0-4); Hematocrit 38.4 % (37.0-47.0); Hemoglobin 12.6 g/dl (12.0-16.0); Imm Gran Abs Auto 0.02 X10*3/uL (0.00-0.03); Imm Gran Pct Auto 0.3 % (0.0-0.4); Lymphocytes Absolute Auto 2.2 X10*3/uL (1.2-4.9); Lymphocytes Percent Auto 30.6 % (20-40); Mean Corpuscular HGB Conc 32.8 g/dl (31.0-35.0); Mean Corpuscular Hemoglobin 28.8 pg (27.0-33.0); Mean Corpuscular Volume 87.7 fL (80.0-98.0); Mean Platelet Volume 10.6 fL (9.4-12.3); Monocytes Absolute Auto 0.4 X10*3/uL (0.1-1.2); Neutrophils Absolute Auto 4.4 x10*3/uL (2.0-8.3); Neutrophils Percent Auto 60.5 % (45-73); Platelet Count 314 X10*3/uL (160-400); Red Blood Count 4.38 X10*6/uL (4.20-5.50); Red Cell Distribution Width 12.7 % (11.0-16.0); White Blood Count 7.3 X10*3/uL (4.8-10.8)
[2024-04-22 10:23] LABS: Alanine Aminotransferase 16 U/L (0-31); Alkaline Phosphatase 107 U/L (39-117); Anion Gap 14 (12-20); Aspartate Amino Transferase 14 U/L (5-31); Bilirubin Total 0.2 mg/dL (0.0-1.0); Blood Urea Nitrogen 13 mg/dL (9-16); Calcium 9.2 mg/dL (8.4-10.2); Carbon Dioxide 24 mmol/L (22-29); Chloride 106 mmol/L (96-108); Estimated Glomerular Filt Rate > 60; Glucose Random 123 mg/dL (60-115); Potassium 3.9 mmol/L (3.3-5.1); Sodium 140 mmol/L (135-145); Total Protein 7.4 g/dL (6.5-8.0)
== END 2024-04-22 08:46 | disposition home or self-care (01) ==
LOC: HO.LAB 08:45
PROVIDERS: PCP Internal Medicine; Visit Provider Registered Nurse
DX: G40.909 Epilepsy, unspecified, not intractable, without status epilepticus (principal)
CPT/HCPCS: 36415; 80053; 85025

== ENCOUNTER 2024-05-27 10:49 | Outpatient (REF) | payer MEDICAID, SELFPAY | END 2024-05-27 10:50 | disposition home or self-care (01) | LOC: HO.HOSX 10:49 | PROVIDERS: Visit Provider Physician Assistant | DX: Z13.89 Encounter for screening for other disorder (principal) ==

== ENCOUNTER 2025-04-22 11:21 | Outpatient (REF) | payer MEDICARE, MEDICAID, SELFPAY ==
--- OUTSIDE RECORDS SUMMARY | 2025-04-22 12:21 | XMS_ITS | Encounter Summary ---
Author Organization [employer] Address [address] [place] [address] [address] [place] [address] Care Team Providers Care Field Clerk Name Role Phone Madeline Ferro MD Primary Care Provide r Reason for Visit * Reason Onset Date Comments Referral 03/09/2023 Encounter Details Date Type Department Care Team ([facility] st Contact Info) Description 03/09/2023 Telephone [facility] MEDICINE [address] [place] [address] Madeline Ferro MD [address] [place] [address] Referral Social History Tobacco Use Types Packs/Day Years Used Date Smoking Tobacco: Never Passive Smoke Exposure: Current Smokeless Tobacco: Never Alcohol Use Standard Drinks/Week Comments Not Currently 0 (1 standard drink = 0.6 oz pur e alcohol) oca Depression Answer Date Recorded Patient Health Questionnaire-9 Score 14 02/28/2023 Depression Answer Date Recorded Patient Health Questionnaire-2 Score 4 02/28/2023 Comments Unknown Sex and Gender Information Value Date Recorded Sex Assigned at Female 09/18/2022 10:16 AM EDT Legal Sex Female 10:16 AM EDT Gender Identity Female 09/18/2022 10:16 AM EDT Sexual Orientation Straight 09/18/2022 10 :16 AM EDT COVID-19 Exposure Response Date Recorded In the last 10 days, have yo u been in contact with someone who was confirmed or suspected to have Coronavirus/COVID-19? No / Unsure 02/28/2023 10:57 AM EDT documented as of this encounter Miscellaneous Notes * Telephone Encounter - Randy Valenzuela - 03/09/2023 11:13 AM EDT Tc from pt requesting status on Referral for physical therapy order on 02/28/2023 Please contact pt at [phone] documented in this encounter Plan of Treatment Upcoming Encounters Date Type Department Care Team (Late st Contact Info) Description 06/29/2025 10:15 AM EDT Procedure Visit [facility] MEDICINE [address] [place] [address] Madeline Ferro MD [address] [place] [address] documented as of this encounter Visit Diagnoses Not on filedocumented in this encounter Additional Health Concerns Assessment Noted Time PHQ-9 Depression Total Score: 14 023 11:09 AM EDT documented as of this encounter Care Teams Field Clerk Relationship Specialty Start Date End Date Madeline Ferro MD [address] [place] [address] PCP - General Family Medicine 12/20/18 documented as of this encounter
[2025-04-22 13:20] LABS: MANUAL DIFF FLAG NO
[2025-04-22 13:26] LABS: Basophils Percent Auto 0.4 % (0-2); Eosinophils Absolute Auto 0.1 X10*3/uL (0.0-0.4); Eosinophils Percent Auto 1.1 % (0-4); Hematocrit 39.4 % (37.0-47.0); Hemoglobin 13.2 g/dl (12.0-16.0); Imm Gran Abs Auto 0.02 X10*3/uL (0.00-0.03); Imm Gran Pct Auto 0.3 % (0.0-0.4); Lymphocytes Absolute Auto 2.2 X10*3/uL (1.2-4.9); Lymphocytes Percent Auto 29.9 % (20-40); Mean Corpuscular HGB Conc 33.5 g/dl (31.0-35.0); Mean Corpuscular Hemoglobin 28.8 pg (27.0-33.0); Mean Corpuscular Volume 85.8 fL (80.0-98.0); Monocytes Absolute Auto 0.4 X10*3/uL (0.1-1.2); Monocytes Percent Auto 5.6 % (2-11); Neutrophils Absolute Auto 4.7 x10*3/uL (2.0-8.3); Neutrophils Percent Auto 62.7 % (45-73); Platelet Count 275 X10*3/uL (160-400); Red Blood Count 4.59 X10*6/uL (4.20-5.50); Red Cell Distribution Width 13.1 % (11.0-16.0); White Blood Count 7.5 X10*3/uL (4.8-10.8)
[2025-04-22 13:31] LABS: Estimated Average Glucose 103 mg/dL; Hemoglobin A1c % 5.2 % (<6.0)
[2025-04-22 14:50] LABS: Alanine Aminotransferase 16 U/L (0-31); Albumin Level 4.2 g/dL (3.5-5.0); Alkaline Phosphatase 97 U/L (39-117); Anion Gap 7 (12-20); Aspartate Amino Transferase 19 U/L (5-31); Bilirubin Total 0.3 mg/dL (0.0-1.0); Blood Urea Nitrogen 9 mg/dL (9-16); Calcium 8.9 mg/dL (8.4-10.2); Carbon Dioxide 27 mmol/L (22-29); Chloride 109 mmol/L (96-108); Cholesterol 196 mg/dL (<200); Estimated Glomerular Filt Rate > 60; Glucose Random 86 mg/dL (60-115); HDL Cholesterol 53 mg/dL (>40); LDL Cholesterol Calculated 131 mg/dL (<100); Potassium 4.2 mmol/L (3.3-5.1); Sodium 139 mmol/L (135-145); TSH reflex Free T4 1.37 uIU/mL (0.32-4.0); Triglycerides 61 mg/dL (<150); Vitamin D 25-OH Total 20.8 ng/mL (>30)
[2025-04-23 05:07] LABS: HIV AB/AG Nonreactive (Nonreactive); HIV Num 1 0.07 S/CO (0.00-0.99); ~HepC Num1 0.12 S/CO (0.00-0.79); ~Hepatitis C Antibody Nonreactive (Nonreactive)
== END 2025-04-22 11:22 | disposition home or self-care (01) ==
LOC: HO.HHCL 11:21
PROVIDERS: Visit Provider Internal Medicine
DX: F39 Unspecified mood [affective] disorder (principal); G40.909 Epilepsy, unspecified, not intractable, without status epilepticus; E66.812 Obesity, class 2; Z68.36 Body mass index [BMI] 36.0-36.9, adult
CPT/HCPCS: 36415; 80053; 80061; 82306; 83036; 84443; 85025; 86803; 87389

== ENCOUNTER 2025-05-14 10:17 | Outpatient (REF) | payer MEDICAID, SELFPAY ==
--- NOTE | ~2025-05-14 | XR_ITS ---
EXAMINATION: XR KNEE, LEFT CLINICAL INFORMATION: pain , chronic COMPARISON: None available. TECHNIQUE: Four views of the left knee. FINDINGS: There is no joint effusion. Joint spaces are preserved. There are no osteophytes. There is mild lateral patellar tilt. XR/XR knee LT 4V IMPRESSION: Mild lateral patellar tilt. Correlate for signs symptoms of excessive lateral pressure syndrome. Electronically signed by: Indio Zaysa MD 05/14/2025 10:43 AM EDT
--- OUTSIDE RECORDS SUMMARY | 2025-05-14 11:55 | XMS_ITS | Encounter Summary ---
Author Organization [employer] Address [address] [place] [address] [address] [place] [address] Care Team Providers Care Academic Guidance Specialist Name Role Phone Madeline Ferro MD Primary Care Provide r Reason for Visit * Reason Onset Date Comments Referral 03/09/2023 Encounter Details Date Type Department Care Team ([facility] st Contact Info) Description 03/09/2023 Telephone [facility] MEDICINE [address] [place] [address] Madeline Ferro MD [address] [place] [address] Referral Social History Tobacco Use Types Packs/Day [...] order on 02/28/2023 Please contact pt at [phone] documented in this encounter Plan of Treatment Upcoming Encounters Date Type Department Care Team (Late st Contact Info) Description 06/29/2025 10:15 AM EDT Procedure Visit [facility] MEDICINE [address] [place] [address] Madeline Ferro MD [address] [place] [address] 08/03/2025 9:45 AM EDT Office Visit [facility] OPTOMETRY [address] [place] [address] Delmy Potts, OD [address] [place] [address] documented as of this encounter Visit Diagnoses Not on filedocumented in this encounter Additional Health Concerns Assessment Noted Time PHQ-9 Depression Total Score: 14 023 11:09 AM EDT documented as of this encounter Care Teams Academic Guidance Specialist Relationship Specialty Start Date End Date Madeline Ferro MD [address] [place] [address] PCP - General Family Medicine 12/20/18 documented as of this encounter
== END 2025-05-14 10:18 | disposition home or self-care (01) ==
LOC: HO.HHCX 10:17
PROVIDERS: PCP Internal Medicine; Visit Provider Internal Medicine
DX: M25.562 Pain in left knee (principal); G89.29 Other chronic pain
CPT/HCPCS: 73564

== ENCOUNTER → 2025-05-14 10:23 | Outpatient (BNV) | payer MEDICAID, SELFPAY | PROVIDERS: PCP Internal Medicine; Visit Provider Radiology Diagnostic Radiology | DX: M22.2X2 Patellofemoral disorders, left knee (principal) | CPT/HCPCS: 73564 ==

== ENCOUNTER 2025-06-29 14:04 | Outpatient (REF) | payer MEDICARE, MEDICAID, SELFPAY ==
--- OUTSIDE RECORDS SUMMARY | 2025-06-29 14:32 | XMS_ITS | Clinical Summary ---
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 AM EDT 04/22/2025 1:11 PM EDT us Madeline Land MD LAB BLOOD ORDERABLES Final Result Performing Organization Address [facility] Co de Phone Number [facility] [address] [place] [phone] * (ABNORMAL) Lipid Panel, Standard (04/22/2025 11:25 AM EDT) Triglycerides 61 <150 mg/dL [facility] Comment:Desirable Triglyceri de: less than 150 mg/dLBorderline High Triglyceride 150-199 mg/dLHigh Triglyceride: 200-499 mg/dLVery High Triglyceride: greater than or equal to 5OO mg/dL Cholesterol 196 <200 mg/dL [facility] Comment:Desirable Cholestero l: less than 200 mg/dLBorderline High Cholesterol: 200-239 mg/dLHigh Cholesterol: greater than 239 mg/dL LDL Cholesterol Calculated 131(H) <100 mg/dL [facility] Comment:Desirable LDL: less than 100 mg/dLNear Optimal/Above Optimal LDL: 110- 129 mg/dLBorderline High LDL: 130-159 mg/dLHigh LDL: 160-189 mg/dLVery High LDL: greater than or equal to 190 mg/dL HDL Cholesterol 53 >40 mg/dL [facility] Comment:Desirable HDL: great er than 40 mg/dL Note: This HDL assay may give artificially low results in patients with liver disease. Blood Venous blood specimen / Unknown 04/22/2025 11:25 AM EDT 04/22/2025 1:11 PM EDT Madeline Land MD LAB BLOOD ORDERABLES Final Result [facility] [address] [place], [place] [phone] * (ABNORMAL) Comprehensive Metabolic Panel (04/22/2025 11:25 AM EDT) Sodium 139 135 - 145 mmol/L [facility] Potassium 4.2 3.3 - 5.1 mmol/L [facility] Chloride 109(H) 96 - 108 mmol/L [facility] Carbon Dioxide 27 22 - 29 mmol/L [facility] Anion Gap 7(L) 12 - 20 [facility] Urea Nitrogen (BUN) 9 9 - 16 mg/dL [facility] Creatinine, Serum 0.64 0.5 - 1.4 mg/dL [facility] Estimated Glomerular Filt Rate >60 [facility] Comment:Chronic Kidney Disea se: Estimated GFR < 60 mL/min/1.17h8Bpdgqk Kidney Disease: Estimated GFR < 15 mL/min/1.73m2 Glucose 86 60 - 115 mg/dL [facility] Calcium 8.9 8.4 - 10.2 mg/dL [facility] Bilirubin, Total 0.3 0.0 - 1.0 mg/dL [facility] Aspartate Amino Transferase 19 5 - 31 U/L [facility] Alanine Aminotransferase 16 0 - 31 U/L [facility] Total Protein 7.0 6.5 - 8.0 g/dL [facility] Albumin Level 4.2 3.5 - 5.0 g/dL [facility] Alkaline Phosphatase 97 39 - 117 U/L [facility] Blood Venous blood specimen / Unknown 04/22/2025 11:25 AM EDT 04/22/2025 1:11 PM EDT Madeline Land MD LAB BLOOD ORDERABLES Final Result [facility] [address] [place] [phone] * HPV mRNA E6/E7 (10/02/2019 9:58 AM EST) HPV mRNA E6/E7 Not Detected NOT DETECTED [facility] Comment: This test was performed using the APTIMA(R) HPV Assay ([employer] This assay detects E6/E7 viral messenger RNA (mRNA) from 14 high-risk HPV types (16,18,31,33,35,39,45,51, 52,56,58,59,66,68). For additional information please refer to: http://education.Integra Telecom/faq/EAJ562d7 (This link is being provided for informational/ educational purposes only.) The analytical performance characteristics of this assay have been determined by [employer] [place], [place]. The modifications have not been cleared or approved by the FDA. This assay has been validated pursuant to the CLIA regulations and is used for clinical purposes. Test Performed by [facility], [place], [address] [place], [place] Stuart Lee M.D., Ph.D., Director of Laboratories , JOSEFA [id number] Please note: Effective 07/31/2016, HPV testing will be performed using [employer]'s APTIMA test which targets mRNA. Detecting mRNA instead of DNA, as in older methods, offers significant improvements in specificity. 10/02/2019 9:58 AM EST us Madeline Land MD HISTORICAL/NON ORDERA BLE LABS Final Result [facility] [address] from Last 3 Months or Most Recently Relevant to Health Maintenance Insurance [facility] [place] [phone] GENERIC TPL Care Teams Care Transitions Manager Relationship Specialty Start Date End Date Madeline Ferro MD [address] [place] [address] PCP - General Family Medicine 12/20/18
== END 2025-06-29 14:05 | disposition home or self-care (01) ==
LOC: HO.HHCLNP 14:04
PROVIDERS: Visit Provider Internal Medicine
DX: Z12.4 Encounter for screening for malignant neoplasm of cervix (principal)
CPT/HCPCS: 88175

== ENCOUNTER → 2025-07-03 09:15 | Outpatient (BNV) | payer MEDICARE, MEDICAID, SELFPAY | PROVIDERS: PCP Internal Medicine; Visit Provider Internal Medicine | DX: Z12.31 Encounter for screening mammogram for malignant neoplasm of breast (principal) | CPT/HCPCS: 77063; 77067 ==

== ENCOUNTER 2025-07-03 09:17 | Outpatient (REF) | payer MEDICARE, MEDICAID, SELFPAY ==
--- NOTE | ~2025-07-03 | MM_ITS ---
EXAMINATION: MM SCREENING DIGITAL BREAST TOMOSYNTHESIS, BILATERAL CLINICAL INFORMATION: Screening. Asymptomatic. COMPARISON: Mammography: Baseline. TECHNIQUE: Digital breast mammography with tomosynthesis is performed in both the craniocaudal and mediolateral oblique views along with computer-aided detection (CAD). FINDINGS: The breasts are heterogeneously dense, which may obscure small masses (ACR BI-RADS breast composition Category c). Left: Circumscribed oval mass upper outer breast far posterior depth. No suspicious calcifications or other abnormal findings. Right: Circumscribed oval mass upper central breast middle to posterior depth. No suspicious calcifications or other abnormal findings. MM/MM tomosynthesis screening BI IMPRESSION: Additional imaging is recommended ASSESSMENT: BI-RADS BI-RADS 0 - Incomplete: Needs additional Imaging. RECOMMENDATION: 1. Additional bilateral ultrasound of the bilateral breast. 2. Radiology department staff will contact the patient for additional imaging. Additional Imaging required This examination should not preclude the clinical evaluation of a suspicious palpable abnormality. This patient's information was entered into a reminder system with a target due date for their next mammogram. Electronically signed by: Kayla Leavitt DO 07/07/2025 12:53 PM EDT
--- OUTSIDE RECORDS SUMMARY | 2025-07-03 09:31 | XMS_ITS | Clinical Summary ---
Author Organization [employer] Address [address] [place] [address] [address] [place] [address] Care Team Providers Care Real Estate Attorney Name Role Phone Madeline Ferro MD Primary [...] NOSTRIL ONCE PER DAY. 48 mL 025 Active Acetaminophen Extra Strength 500 MG [...] MG) SUBCUTANEOUSLY ONCE A WEEK 2 mL Active triamcinolone (Kenalog) 0.1 % creamIndication s:Dry skin dermatitis Apply topically if needed in the morning and at bedtime (pain and swelling). 30 g 2 025 Active naproxen (Naprosyn) 500 MG tabletIndicatio ns:Acute right ankle pain,Closed nondisplaced fracture of fifth metatarsal bone of right foot, initial encounter TAKE 1 TABLET BY MOUTH TWICE A DAY 60 tablet 025 2024 Discontinued(R eorder (will not trigger notification to Pharmacy)) Tirzepatide-Curt ght Management (Zepbound) 5 MG/0.5ML solution auto-injectorIn dications:Class 2 severe obesity due to excess calories with serious comorbidity and body mass index (BMI) of 36.0 to 36.9 in adult ([facility]) INJECT 0.5 ML (5 MG) UNDER THE [...] XRAY ordered patient will be contacted with [facility] 06/26/2023 Assessment & Plan (06/26/2023 10:08 AM [...] Encounters Date Type Department Care Team Description 07/02/2025 Refill [facility] [address] [place] [phone] Madeline Ferro MD Class 1 obesity due to excess calories with serious comorbidity and body mass index (BMI) of 33.0 to 33.9 in adult 06/29/2025 10:15 AM EDT Procedure Visit [facility] [address] [place] [phone] Madeline Ferro MD Abnormal skin of vulva (Primary Dx); Chronic bilateral low back pain without sciatica; Dry skin dermatitis; Class 1 obesity due to excess calories with serious comorbidity and body mass index (BMI) of 33.0 to 33.9 in adult; Encounter for Papanicolaou smear of cervix; Dietary counseling; Exercise counseling 06/29/2025 Travel 06/26/2025 Telephone [facility] [address] [place] [phone] Madeline Ferro MD Chart Prep 06/02/2025 Refill [facility] [address] [place] [address] Madeline Ferro MD Class 2 severe obesity due to excess calories with serious comorbidity and body mass index (BMI) of 36.0 to 36.9 in adult ([facility]/HCC) 05/31/2025 Refill [facility] [address] [place], [place] [phone] Madeline Ferro MD Vitamin D deficiency; Class 2 severe obesity due to excess calories with serious comorbidity and body mass index (BMI) of 36.0 to 36.9 in adult ([facility]); Acute right ankle pain; Closed nondisplaced fracture of fifth metatarsal bone of right foot, initial encounter 05/14/2025 11:00 AM EDT Clinical Support [facility] [address] [place], [place] [phone] Zari Colmenares, NAUN Encounter for immunization 04/27/2025 Telephone [facility] [address] [place], [place] [phone] Madeline Ferro MD Prior Authorization 04/24/2025 Refill [facility] [address] [place], [place] [phone] Madeline Ferro MD Class 2 severe obesity due to excess calories with serious comorbidity and body mass index (BMI) of 36.0 to 36.9 in adult ([facility]) 04/24/2025 Results Follow-Up [facility] [address] [place] [phone] Madeline Ferro MD CBC auto differential, Comprehensive Metabolic Panel, Hemoglobin A1c, Additional followed-up results: 6 04/22/2025 10:45 AM EDT Office Visit [facility] [address] [place] [phone] Madeline Ferro MD Mood disorder ([facility]) (Primary Dx); Seizure disorder ([facility]); Encounter for screening mammogram for malignant neoplasm of breast; Class 2 severe obesity due to excess calories with serious comorbidity and body mass index (BMI) of 36.0 to 36.9 in adult ([facility]); Encounter for preventive care; Diminished vision; Chronic pain of left knee 04/22/2025 Travel 04/21/[address] [address] Madeline Ferro MD chart prep 04/10/2025 Patient Outreach [facility] [address] [place] [phone] Madeline Ferro MD Pre-visit Planning (SDOH screening negative and tobacco screening negative) 04/02/2025 Refill [facility] [address] [place] [address] [phone] Madeline Ferro MD Acute right ankle pain; [...] t he electric, gas, oil or water company threatened to shut off services in your [...] Description 08/03/2025 9:45 AM EDT Office Visit [facility] [address] [place] [address] Delmy Potts, OD [address] [place] [address] Health Maintenance Due Date Last Done Comments Family Planning (PISQ) 1997 HPV Vaccines (1 - 3-dose series) 1997 Pap Smear 2003 Mammogram 2022 COVID-19 Vaccine ( season) 2024 Cervical Cancer Screening 10/02/2024 HPV/Cotest [...] of 36.0 to 36.9 in adult (CMS/HCC) [facility] HISTORICAL HPV MRNA E6/E7 Routine 10/02/2019 9:58 AM EST from Last 3 Months or Most Recently Relevant to Health Maintenance Results * XR Knee 4+ Views Left (05/14/2025 9:44 AM EDT) Anatomical Region Laterality Modality Lower Extremities, Knee Left [facility] 05/14/2025 9:44 AM EDT Narrative 05/14/2025 10:46 AM EDT [address] [address] XRay Report Signed Patient: Leslie Baker MR#: [id number] : 1980 Acct:[id number] Age/Sex: 44 / F ADM Date: 05/14/25 Loc: HO.CX Attending Dr: Madeline Land MD Ordering Physician: Madeline Ferro MD Date of Service: 05/14/25 Procedure(s): XR knee LT 4V Accession Number(s): [id number] cc: Madeline Ferro MD EXAMINATION: XR KNEE, [...] excessive lateral pressure syndrome. Electronically signed by: Inido Zayas MD 05/14/2025 10:43 AM EDT RP Dictated By: Indio Zayas MD Signed By: <Electronically signed by Indio Zayas MD in OV> 05/14/25 1043 DD/ 0944 TD/TT: 05/14/25 1000 Skills Instructor: Procedure Note Donotuseinterpreter, Image - 05/14/[address] [address] XRay Report Signed Patient: Leslie BakerMR#: [id number] : 1980Acct:[id number] Age/Sex: 44 / FADM Date: 05/14/25 Loc: HO.CX Attending Dr: Madeline Land MD Ordering Physician: Madeline Ferro MD Date of Service: 05/14/25 Procedure(s): XR knee LT 4V Accession Number(s): [id number] cc: Madeline Ferro MD EXAMINATION: XR KNEE, [...] Indio Zayas MD 05/14/2025 10:43 AM EDT RP Dictated By: Indio Zayas MD Signed By: <Electronically signed by Indio Zayas MD in OV> 05/14/25 1043 DD/ 0944 TD/TT: 05/14/25 1000 Skills Instructor: us Madeline Land MD IMG XR PROCEDURES Fin al Result * (ABNORMAL) Vitamin D, 25-Hydroxy, Total, Immunoassay (04/22/2025 11:25 AM EDT) Vitamin D 25-OH Total 20.8(L) >30 ng/mL [facility] Comment: Health Based Reference Values*< 20 ng/mL Gdthyboox27-35 ng/mL Insufficient> 30 ng/mL Sufficient*Jacob ZHENG. N [...] Land MD LAB BLOOD ORDERABLES Final Result [facility] [address] [place] [phone] * TSH with Reflex to Free T4 (04/22/2025 11:25 AM EDT) Pathologist [facility] TSH reflex Free T4 1.37 0.32 - 4.0 uIU/mL [facility] Blood Venous blood specimen / Unknown 04/22/2025 11:25 AM EDT 04/22/2025 1:11 PM EDT Madeline Land MD LAB BLOOD ORDERABLES Final Result Performing Organization Address [facility] Co de Phone Number [facility] [address] [place] [phone] * CBC auto differential (04/22/2025 11:25 AM EDT) Pathologist [facility] White Blood Count 7.5 4.8 - 10.8 X10*3/uL [facility] Red Blood Count 4.59 4.20 - 5.50 X10*6/uL [facility] Hemoglobin 13.2 12.0 - 16.0 g/dl [facility] Hematocrit 39.4 37.0 - 47.0 % [facility] Mean Corpuscular Volume 85.8 80.0 - 98.0 fL [facility] Mean Corpuscular Hemoglobin 28.8 27.0 - 33.0 pg [facility] Mean Corpuscular HGB Conc 33.5 31.0 - 35.0 g/dl [facility] Red Cell Distribution Width 13.1 11.0 - 16.0 % [facility] Platelet Count 275 160 - 400 X10*3/uL [facility] Mean Platelet Volume 11.0 9.4 - 12.3 fL [facility] Neutrophils Percent Auto 62.7 45 - 73 % [facility] Imm Gran Pct Auto 0.3 0.0 - 0.4 % [facility] Lymphocytes Percent Auto 29.9 20 - 40 % [facility] Monocytes Percent Auto 5.6 2 - 11 % [facility] Eosinophils Percent Auto 1.1 0 - 4 % [facility] Basophils Percent Auto 0.4 0 - 2 % [facility] NRBC Pct Auto 0.0 0.0 - 0.2 /100WBC [facility] Neutrophils Absolute Auto 4.7 2.0 - 8.3 x10*3/uL [facility] Imm Gran Abs Auto 0.02 0.00 - 0.03 X10*3/uL [facility] Lymphocytes Absolute Auto 2.2 1.2 - 4.9 X10*3/uL [facility] Monocytes Absolute Auto 0.4 0.1 - 1.2 X10*3/uL [facility] Eosinophils Absolute Auto 0.1 0.0 - 0.4 X10*3/uL [facility] Basophils Absolute Auto 0.0 0.0 - 0.2 X10*3/uL [facility] NRBC Abs Auto 0.000 0.0 - 0.012 X10*3/uL [facility] Blood Venous blood specimen / Unknown 04/22/2025 11:25 AM EDT 04/22/2025 1:11 PM EDT us Madleine Land MD LAB BLOOD ORDERABLES Final Result [facility] [address] [place] [phone] * Hepatitis C Antibody with Reflex to HCV, RNA, Quantitative, Real-Time PCR (04/22/2025 11:25 AM EDT) Hepatitis C Antibody Nonreactive Nonreactive [facility] Comment:Antibodies to HCV no t detected; does not exclude early acuteHCV infection. Blood Venous blood specimen / Unknown 04/22/2025 11:25 AM EDT 04/22/2025 1:11 PM EDT us Madeline Land MD LAB BLOOD ORDERABLES Final Result Performing Organization Address City/[facility]/ZIP Co de Phone Number [facility] [address] [place] [phone] * HIV-1/2 Antigen and Antibodies, Fourth Generation, with Reflexes (04/22/2025 11:25 AM EDT) HIV AB/AG Nonreactive Nonreactive [facility] Comment:HIV-1 p24 Ag and/or HIV-1/HIV-2 Ab not detected.A test result that is nonreactive does not exclude thepossibility of exposure to or infection with HIV-1 and/orHIV-2. Nonreactive results in this assay for individualswith prior exposure to HIV-1 and/or HIV-2 may be due toantigen and antibody levels that are below the limit ofdetection of this assay.The [employer] HIV Ag/Ab Combo assay result andsupplemental assay results should be interpreted inconjunction with the patient's clinical presentation,history and other laboratory results. If the results areinconsistent with clinical evidence, additional testing issuggested to confirm the result. Blood Venous blood specimen / Unknown 04/22/2025 11:25 AM EDT 04/22/2025 1:11 PM EDT us Madeline Land MD LAB BLOOD ORDERABLES Final Result Performing Organization Address [facility]/ZIP Co de Phone Number [facility] [address] [place] [phone] * Hemoglobin A1c (04/22/2025 11:25 AM EDT) Hemoglobin A1c 5.2 <6.0 % [facility] Comment:Hemoglobin A1C Refer ence Range Adults: 4.8 - 6.0 % Non diabetic: < 6.0 % Goal: < 7.0 %Additional Action Suggested: > 8.0 %Note: Hemoglobin A1c results are invalid for patients with abnormal amounts of HbF. Blood transfusions may impact the HbA1c concentration in the patient sample. Estimated Average Glucose 103 mg/dL [facility] Comment:eAG = Estimated ave rage glucose which is %A1C expressed asaverage glucose, using the formula of the X1S-KdbnevwBzliivn Glucose study (ADAG), Diabetes Care, Vol.31,#8,Jun. 2007 Blood Venous blood specimen / Unknown 04/22/2025 11:25 AM EDT 04/22/2025 1:11 PM EDT us Madeline Land MD LAB BLOOD ORDERABLES Final Result Performing Organization Address [facility] de Phone Number [facility] [address] [place] [phone] * (ABNORMAL) Lipid Panel, Standard (04/22/2025 11:25 AM EDT) Triglycerides 61 <150 mg/dL [facility] Comment:Desirable Triglyceri de: less than 150 mg/dLBorderline High Triglyceride 150-199 mg/dLHigh Triglyceride: 200-499 mg/dLVery High Triglyceride: greater than or equal to 5OO mg/dL Cholesterol 196 <200 mg/dL [facility] Comment:Desirable Cholestero l: less than 200 mg/dLBorderline High Cholesterol: 200-239 mg/dLHigh Cholesterol: greater than 239 mg/dL LDL Cholesterol Calculated 131(H) <100 mg/dL [facility] Comment:Desirable LDL: less than 100 mg/dLNear Optimal/Above Optimal LDL: 110- 129 mg/dLBorderline High LDL: 130-159 mg/dLHigh LDL: 160-189 mg/dLVery High LDL: greater than or equal to 190 mg/dL HDL Cholesterol 53 >40 mg/dL [facility] Comment:Desirable HDL: great er than 40 mg/dL Note: This HDL assay may give artificially low results in patients with liver disease. Blood Venous blood specimen / Unknown 04/22/2025 11:25 AM EDT 04/22/2025 1:11 PM EDT us Madeline Land MD LAB BLOOD ORDERABLES Final Result Performing Organization Address [facility] Co de Phone Number [facility] [address] [place] [phone] * (ABNORMAL) Comprehensive Metabolic Panel (04/22/2025 11:25 AM EDT) Sodium 139 135 - 145 mmol/L [facility] Potassium 4.2 3.3 - 5.1 mmol/L [facility] Chloride 109(H) 96 - 108 mmol/L [facility] Carbon Dioxide 27 22 - 29 mmol/L [facility] Anion Gap 7(L) 12 - 20 [facility] Urea Nitrogen (BUN) 9 9 - 16 mg/dL [facility] Creatinine, Serum 0.64 0.5 - 1.4 mg/dL [facility] Estimated Glomerular Filt Rate >60 [facility] Comment:Chronic Kidney Disea se: Estimated GFR < 60 mL/min/1.85a6Ojktyy Kidney Disease: Estimated GFR < 15 mL/min/1.73m2 Glucose 86 60 - 115 mg/dL [facility] Calcium 8.9 8.4 - 10.2 mg/dL [facility] Bilirubin, Total 0.3 0.0 - 1.0 mg/dL [facility] Aspartate Amino Transferase 19 5 - 31 U/L [facility] Alanine Aminotransferase 16 0 - 31 U/L [facility] Total Protein 7.0 6.5 - 8.0 g/dL [facility] Albumin Level 4.2 3.5 - 5.0 g/dL [facility] Alkaline Phosphatase 97 39 - 117 U/L [facility] Blood Venous blood specimen / Unknown 04/22/2025 11:25 AM EDT 04/22/2025 1:11 PM EDT us Madeline Land MD LAB BLOOD ORDERABLES Final Result [facility] [address] [place] [phone] * HPV mRNA E6/E7 (10/02/2019 9:58 AM EST) HPV mRNA E6/E7 Not Detected NOT DETECTED [facility] Comment: This test was performed using the APTIMA(R) HPV Assay ([employer] This assay detects E6/E7 viral messenger RNA (mRNA) from 14 high-risk HPV types (16,18,31,33,35,39,45,51, 52,56,58,59,66,68). For additional information please refer to: http://education.[employer]ellik[employer]/faq/ICQ819b0 (This link is being provided for informational/ educational purposes only.) The analytical performance characteristics of this assay have been determined by [employer] [place], [place]. The modifications have not been cleared or approved by the FDA. This assay has been validated pursuant to the CLIA regulations and is used for clinical purposes. Test Performed by [employer] [facility], [facility] [facility], [address] [place] [address] Stuart Lee M.D., Ph.D., Director of Laboratories , CLIA [id number] Please note: Effective 07/31/2016, HPV testing will be performed using [employer]'s APTIMA test which targets mRNA. Detecting mRNA instead of DNA, as in older methods, offers significant improvements in specificity. 10/02/2019 9:58 AM EST Madeline Land MD HISTORICAL/NON ORDERA BLE LABS Final Result [facility] [address] from Last 3 Months or Most Recently Relevant to Health Maintenance Insurance [facility] STANDARD MEDICARE [facility] TPL Care Teams Real Estate Attorney Relationship Specialty Start Date End Date Madeline Ferro MD [address] [place] [phone] PCP - General Family Medicine 12/20/18
== END 2025-07-03 09:18 | disposition home or self-care (01) ==
LOC: HO.MAMMO 09:17
PROVIDERS: PCP Internal Medicine; Visit Provider Internal Medicine
DX: Z12.31 Encounter for screening mammogram for malignant neoplasm of breast (principal)
CPT/HCPCS: 77063; 77067

== ENCOUNTER 2025-07-17 07:48 | Outpatient (REF) | payer MEDICARE, MEDICAID, SELFPAY ==
--- NOTE | ~2025-07-17 | MM_ITS ---
EXAMINATIONS: 1. MM DIAGNOSTIC DIGITAL BREAST TOMOSYNTHESIS, BILATERAL 2. Targeted ultrasound of the right breast 3. Targeted ultrasound of the left breast CLINICAL INFORMATION: Callback from baseline screening for bilateral breasts findings: Right: Mass in the upper central breast middle to posterior depth Left: Mass in the upper outer quadrant far posterior depth COMPARISON: July 03, 2025 TECHNIQUE: Digital breast tomosynthesis is performed in full-field ML 90 degrees along with computer-aided detection (CAD). Synthesized 2D images are generated from the tomosynthesis. Spot compression tomosynthesis images were also obtained. FINDINGS: BREAST COMPOSITION: The breasts are heterogeneously dense, which may obscure small masses (ACR BI-RADS breast composition Category c). RIGHT BREAST: Approximately 0 7 cm focal asymmetry in the upper breast at approximately 12 o'clock position at 6 cm from the nipple (ML 90 degrees 37/72, spot CC 24/67). Targeted ultrasound of the right breast was performed at the location of the mammographic finding. The survey performed throughout the 11:00 to 1:00 axis did not reveal suspicious sonographic findings. LEFT BREAST: Approximately 0.9 cm oval mass in the upper outer quadrant at about 9-10 cm from the nipple (ML 90 degrees 24/84, spot CC 17/69). Targeted ultrasound of the left breast was performed at the location of the mammographic finding. The survey shows a 0.9 x 0.5 x 0.8 cm simple cyst at 2 o'clock position 5 cm from the nipple. No internal vascularity demonstrated with color Doppler evaluation. The finding correlates with the mammographic finding. MM/MM tomosynthesis diagnostic BI IMPRESSION: RIGHT BREAST: 0.7 cm focal asymmetry in the upper breast at 6 cm from the nipple, without definite sonographic correlate. Probably benign. A 6-month follow-up mammogram is recommended. LEFT BREAST: 0.9 cm simple cyst at 2 o'clock position 5 cm from the nipple. Benign, no evidence of malignancy. No dedicated imaging follow-up needed. Normal interval follow-up mammogram is recommended in 12 months. ASSESSMENT: BI-RADS 3 - Probably benign finding(s) - 6 month follow-up suggested RECOMMENDATION: 6 Month F/U Results were provided to the patient at time of visit by the technologist. This patient's information was entered into a reminder system with a target due date for their next mammogram. Electronically signed by: Ilene Palacio MD 07/17/2025 08:46 AM EDT
--- OUTSIDE RECORDS SUMMARY | 2025-07-17 07:51 | XMS_ITS | Encounter Summary ---
Author Organization [employer] Address [address] [facility] 7t [place] [address] Care Team Providers Care Fitness Studies Teacher Name Role Phone Madeline Ferro MD Primary Care Provide r Encounter Details Date Type Department Care Team ([facility] st Contact Info) Description 07/06/2025 Orders Only [facility] [address] [place] [address] Madeline Ferro MD [address] [place] [address] Social History Tobacco Use Types Packs/Day Years [...] Orientation Straight 09/18/2022 10 :16 AM EDT documented as of this encounter Plan of Treatment Upcoming Encounters Date Type Department Care Team (Late st Contact Info) Description 08/03/2025 9:45 AM EDT Office Visit [facility] OPTOMETRY [address] [place] [address] Delmy Potts, OD [address] [place] [address] 09/16/2025 10:00 AM EDT Procedure Visit [facility] MEDICINE [address] [place] [address] Madeline Ferro MD [address] [place] [address] documented as of this encounter Visit Diagnoses Not on filedocumented in this encounter Additional Health Concerns Assessment Noted Time PHQ-9 Depression Total Score: 8 04/22/20 25 10:18 AM EDT documented as of this encounter Care Teams Fitness Studies Teacher Relationship Specialty Start Date End Date Madeline Ferro MD [address] [place] [id number] PCP - General Family Medicine 12/20/18 documented as of this encounter
--- OUTSIDE RECORDS SUMMARY | 2025-07-17 07:51 | XMS_ITS | Encounter Summary ---
Author Organization [employer] Address [address] [facility] 7t [place] [address] Care Team Providers Care Russian Rubber Name Role Phone Madeline Ferro MD Primary Care Provide r Encounter Details Date Type Department Care Team ([facility] st Contact Info) Description 07/06/2025 Results Follow-Up [facility]ED[facility] [address] [place] [address] Madeline Ferro MD [address] [place] [address] Pap Smear Social History Tobacco Use Types Packs/Day Years [...] as of this encounter Miscellaneous Notes * Result Encounter Note - Gentry Valdez MA - 07/06/2025 2:21 PM EDT All set patient is booked for 09/16/2025 at 10 am . documented in this encounter Plan of Treatment Upcoming Encounters Date Type Department Care Team (Late st Contact Info) Description 08/03/2025 9:45 AM EDT Office Visit [facility] OPTOMETRY [address] [place] [address] Tareliceo Delmy, OD [address] [place] [address] 09/16/2025 10:00 AM EDT Procedure Visit [facility] MED[facility] [address] [place] [address] Madeline Ferro MD [address] [place] [address] documented as of this encounter Visit Diagnoses Not on filedocumented in this encounter Additional Health Concerns Assessment Noted Time PHQ-9 Depression Total Score: 8 04/22/20 25 10:18 AM EDT documented as of this encounter Care Teams Russian Rubber Relationship Specialty Start Date End Date Madeline Ferro MD [address] [place] [address] PCP - General Family Medicine 12/20/18 documented as of this encounter
--- OUTSIDE RECORDS SUMMARY | 2025-07-17 07:51 | XMS_ITS | Encounter Summary ---
Author Organization [employer] Address [address] [place] [address] 7 [place] [address] Care Team Providers Care Oakes Machine Operator Name Role Phone Madeline Ferro MD Primary Care Provide r Reason for Visit * Reason Onset Date Comments Referral 03/09/2023 Encounter Details Date Type Department Care Team ([facility] st Contact Info) Description 03/09/2023 Telephone [facility] MED[facility]INE [address] [place] [address] Madeline Ferro MD [address] [place] [address] Referral Social History Tobacco Use Types Packs/Day [...] order on 02/28/2023 Please contact pt at [phone] documented in this encounter Plan of Treatment Upcoming Encounters Date Type Department Care Team (Late st Contact Info) Description 08/03/2025 9:45 AM EDT Office Visit [facility] OPTOMETRY [address] [place] [address] TarkaDelmy, OD [address] [place] [address] 09/16/2025 10:00 AM EDT Procedure Visit [facility] MEDICINE [address] [place] [address] Madeline Ferro MD [address] [place] [address] documented as of this encounter Visit Diagnoses Not on filedocumented in this encounter Additional Health Concerns Assessment Noted Time PHQ-9 Depression Total Score: 14 023 11:09 AM EDT documented as of this encounter Care Teams Oakes Machine Operator Relationship Specialty Start Date End Date Madeline Ferro MD [address] [place] [address] PCP - General Family Medicine 12/20/18 documented as of this encounter
--- OUTSIDE RECORDS SUMMARY | 2025-07-17 07:51 | XMS_ITS | Encounter Summary ---
Author Organization [employer] Address [address] [facility] 7t [place] [address] Care Team Providers Care Senior Sales Assistant Name Role Phone Madeline Ferro MD Primary Care Provide r Reason for Visit * Reason Comments Med Refill Encounter Details Date Type Department Care Team ([facility] st Contact Info) Description 01/22/2025 Refill [facility] [address] [place] [address] Madeline Ferro MD [address] [place] [address] Social History Tobacco Use Types Packs/Day Years Used Date Smoking Tobacco: Never Passive Smoke Exposure: Current Smokeless Tobacco: Never Alcohol Use Standard Drinks/Week Comments Not Currently 0 (1 standard drink = 0.6 oz pur e alcohol) oca Depression Answer Date Recorded Patient Health Questionnaire-9 Score 14 02/28/2023 Housing Stability Answer Date Recorded What is your housing situation today? I have tiffany martins 09/06/[address] you li ve. Do you have problems with any of the following? None of the above 09/06/2023 Food Insecurity Answer Date Recorded Within the past 12 months, y ou worried that your food would run out before you got money to buy more: Never True 09/06/2023 Within the past 12 months,th e food you bought just didn't last and you didn't have enough money to get more: Never True Transportation Answer Date Recorded In the past 12 months, has l ack of transportation kept you from medical appts, meetings, work or from getting things needed for daily living? No 09/06/2023 Utilities Answer Date Recorded In the past 12 months, has t he electric, gas, oil or water company threatened to shut off services in your home? No 09/06/2023 Depression Answer Date Recorded Patient Health Questionnaire-2 [...] Description 08/03/2025 9:45 AM EDT Office Visit [facility] OPTOM[facility] [address] [place] [address] TarDelmy fenton, OD [address] [place] [address] 09/16/2025 10:00 AM EDT Procedure Visit [facility] [address] [place] [address] Madeline Ferro MD [address] [place] [address] documented as of this encounter Visit Diagnoses Not on filedocumented in this encounter Additional Health Concerns Assessment Noted Time PHQ-9 Depression Total Score: 14 023 11:09 AM EDT documented as of this encounter Care Teams Senior Sales Assistant Relationship Specialty Start Date End Date Madeline Ferro MD [address] [place] [phone] PCP - General Family Medicine 12/20/18 documented as of this encounter
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
--- OUTSIDE RECORDS SUMMARY | 2025-07-17 07:51 | XMS_ITS | Encounter Summary ---
Author Organization [employer] Address [address] [place] [address] 7t [place] [address] Care Team Providers Care Etcher Machine Name Role Phone Madeline Ferro MD Primary Care Provide r Reason for Visit * Reason Comments Med Change Request Encounter Details Date Type Department Care Team ([facility] st Contact Info) Description 04/24/2025 Refill [facility] MEDICINE [address] [place], [place] [phone] Madeline Ferro MD [address] [place] [address] Class 2 severe obesity due to excess calories with serious comorbidity and body mass index (BMI) of 36.0 to 36.9 in adult (CMS/HCC) Social History Tobacco Use Types Packs/Day Years [...] Description 08/03/2025 9:45 AM EDT Office Visit [facility] OPTOMETRY [address] [place] [address] Delmy Potts, OD [address] [place] [address] 09/16/2025 10:00 AM EDT Procedure Visit [facility] MEDICINE [address] [place], [place] [phone] Madeline Ferro MD [address] [place] [address] documented as of this encounter Visit Diagnoses Diagnosis Class 2 severe obesity due to excess calories with serious comorbidity and body mass index (BMI) of 36.0 to 36.9 in adult (CMS/HCC) documented in this encounter Additional Health Concerns Assessment Noted Time PHQ-9 Depression Total Score: 8 04/22/20 25 10:18 AM EDT documented as of this encounter Care Teams Etcher Machine Relationship Specialty Start Date End Date Madeline Ferro MD [address] [place] [address] PCP - General Family Medicine 12/20/18 documented as of this encounter
--- OUTSIDE RECORDS SUMMARY | 2025-07-17 07:51 | XMS_ITS | Clinical Summary ---
Author Organization [employer] Address [address] [place] [address] [address] [place] [address] Care Team Providers Care Manager Voice Name Role Phone Madeline Ferro MD Primary [...] IF NEEDED FOR MILD PAIN. 120 tablet Active naproxen (Naprosyn) 500 MG tabletIndicatio ns:Chronic bilateral low back pain without sciatica Take 1 tablet (500 mg) by mouth 2 times daily. 60 tablet 025 Active triamcinolone (Kenalog) 0.1 % creamIndication s:Dry skin dermatitis Apply topically if needed in the morning and at bedtime (pain and swelling). 30 g 2 025 Active Tirzepatide-Curt ght Management (Zepbound) 5 MG/0.5ML solution auto-injectorIn dications:Class 1 obesity due to excess calories with serious comorbidity and body mass index (BMI) of 33.0 to 33.9 in adult INJECT 0.5 ML (5 MG) UNDER THE SKIN 1 (ONE) TIME PER WEEK 2 mL Active naproxen (Naprosyn) 500 MG tabletIndicatio ns:Acute [...] (BMI) of 36.0 to 36.9 in adult ([facility]) INJECT 0.5 ML (5 MG) UNDER THE [...] A WEEK 2 mL 025 2024 Discontinued Active Problems Problem Noted Date Diagnosed Date [...] XRAY ordered patient will be contacted with results Health care maintenance 06/26/2023 Assessment & Plan (06/26/2023 10:08 [...] Encounters Date Type Department Care Team Description 07/06/2025 Results Follow-Up [facility] [address] [place] [address] Madeline Ferro MD Pap Smear 07/06/2025 Orders Only [facility] [address] [place] [address] Madeline Ferro MD 07/02/2025 Refill [facility] [address] [place] [address] Madeline Ferro MD Class 1 obesity due to excess calories with serious comorbidity and body mass index (BMI) of 33.0 to 33.9 in adult 06/29/2025 10:15 AM EDT Procedure Visit [facility] [address] [place] [address] Madeline Ferro MD Abnormal skin of vulva (Primary Dx); Chronic bilateral low back pain without sciatica; Dry skin dermatitis; Class 1 obesity due to excess calories with serious comorbidity and body mass index (BMI) of 33.0 to 33.9 in adult; Encounter for Papanicolaou smear of cervix; Dietary counseling; Exercise counseling 06/29/2025 Travel 06/26/2025 Telephone [facility] [address] [place] [address] Madeline Ferro MD Chart Prep 06/02/2025 Refill [facility] [address] [place] [address] Madeline Ferro MD Class 2 severe obesity due to excess calories with serious comorbidity and body mass index (BMI) of 36.0 to 36.9 in adult (CMS/HCC) 05/31/2025 Refill [facility] [address] [place] [address] Madeline Ferro MD Vitamin D deficiency; Class 2 severe obesity due to excess calories with serious comorbidity and body mass index (BMI) of 36.0 to 36.9 in adult ([facility]); Acute right ankle pain; Closed nondisplaced fracture of fifth metatarsal bone of right foot, initial encounter 05/14/2025 11:00 AM EDT Clinical Support [facility] [address] [place] [phone] Zari Colmenares, RN Encounter for immunization 04/27/2025 Telephone [facility] [address] [place], [place] [phone] Madeline Ferro MD Prior Authorization 04/24/2025 Refill [facility] [address] [place] [phone] Madeline Ferro MD Class 2 severe obesity due to excess calories with serious comorbidity and body mass index (BMI) of 36.0 to 36.9 in adult ([facility]) 04/24/2025 Results Follow-Up [address] [address] Madeline Ferro MD CBC auto differential, Comprehensive Metabolic Panel, Hemoglobin A1c, Additional followed-up results: 6 04/22/2025 10:45 AM EDT Office Visit [address] [address] Madeline Ferro MD Mood disorder ([facility]) (Primary Dx); Seizure disorder ([facility]); Encounter for screening mammogram for malignant neoplasm of breast; Class 2 severe obesity due to excess calories with serious comorbidity and body mass index (BMI) of 36.0 to 36.9 in adult ([facility]); Encounter for preventive care; Diminished vision; Chronic pain of left knee 04/22/2025 Travel 04/21/[address] [phone] Madeline Ferro MD chart prep from Last 3 Months Immunizations Immunization Administration [...] Description 08/03/2025 9:45 AM EDT Office Visit [facility] [address] [place] [address] Delmy Potts, OD [address] [place] [address] 09/16/2025 10:00 AM EDT Procedure Visit [facility] [address] [place] [address] Madeline Ferro MD [address] [place] [address] Health Maintenance Due Date Last Done Comments Family Planning (PISQ) 1997 HPV Vaccines (1 - 3-dose series) 1997 COVID-19 Vaccine ( season) 2024 HPV/Cotest 10/02/2024 10/02/2019 Influenza Vaccine (#1) 2025 4, 09/08/2013, 11/26/2012, Additional history exists Alcohol/Substance Use Screening 04/22/2026 04/22/2025 Depression Screening 04/22/2026 04/22/2025, 04/22/20 Disability Screening 04/22/2026 04/22/2025 SDOH Screening 04/22/2026 04/22/2025 Tobacco Screening 06/29/2026 06/29/2025 Mammogram 07/03/2027 07/03/2025 Cervical Cancer Screening 06/29/2028 Pap Smear 06/29/2028 06/29/2025 Lipid Panel 04/22/2030 04/22/2025, 06/26/2023 Zoster [...] Procedure Name Priority Date/Time Associated Diagnosis Comments BI MAMMOGRAM SCREENING TOMOSYNTHESIS BILATERAL Routine 07/03/2025 9:25 AM EDT Encounter for screening mammogram for malignant neoplasm of breast PAP SMEAR Routine 06/29/2025 10:46 AM EDT Encounter for Papanicolaou smear of cervix XR KNEE 4+ VIEWS LEFT Routine 05/14/2025 9:44 AM EDT Chronic pain of left knee TSH W/REFLEX TO FT4 Routine 04/22/2025 1 1:25 AM EDT Seizure disorder ([facility]) Mood disorder (CMS/HCC) Class 2 severe obesity due to excess calories with serious comorbidity and body mass index (BMI) of 36.0 to 36.9 in adult ([facility]) VITAMIN D,25-OH,TOTAL,IA Routine 04/22/2025 11:25 AM EDT [...] (BMI) of 36.0 to 36.9 in adult ([facility]) [employer] HISTORICAL HPV MRNA E6/E7 Routine 10/02/2019 9:58 AM EST from Last 3 Months or Most Recently Relevant to Health Maintenance Results * BI Mammogram Screening Tomosynthesis Bilateral (07/03/2025 9:25 AM EDT) Anatomical Region Laterality Modality Breast Bilateral Mammography 07/03/2025 9:25 AM EDT Narrative 07/07/2025 12:56 PM EDT [place] [place] [address] Mammography Report Signed Patient: Leslie Baker MR#: [id number] : 1980 Acct:[id number] Age/Sex: 44 / F ADM Date: 07/03/25 Loc: [facility] [place] Attending Dr: Madeline Land MD Ordering Physician: Madeline Ferro MD Results: 0Incomplete: Needs Additional Imaging Evaluation Date of Service: 07/03/25 Follow Up: Additional Imagi ng Procedure(s): MM tomosynthesis screening BI Accession Number(s): [id number] cc: Madeline Ferro MD EXAMINATION: MM SCREENING DIGITAL BREAST TOMOSYNTHESIS, BILATERAL CLINICAL INFORMATION: Screening. Asymptomatic. COMPARISON: Mammography: Baseline. TECHNIQUE: Digital breast mammography with tomosynthesis is performed in both the craniocaudal and mediolateral oblique views along with computer-aided detection (CAD). FINDINGS: The breasts are heterogeneously dense, which may obscure small masses (ACR BI-RADS breast composition Category c). Left: Circumscribed oval mass upper outer breast far posterior depth. No suspicious calcifications or other abnormal findings. Right: Circumscribed oval mass upper central breast middle to posterior depth. No suspicious calcifications or other abnormal findings. MM/MM tomosynthesis screening BI IMPRESSION: Additional imaging is recommended ASSESSMENT: BI-RADS BI-RADS 0 - Incomplete: Needs additional Imaging. RECOMMENDATION: 1. Additional bilateral ultrasound of the bilateral breast. 2. Radiology department staff will contact the patient for additional imaging. Additional Imaging required This examination should not preclude the clinical evaluation of a suspicious palpable abnormality. This patient's information was entered into a reminder system with a target due date for their next mammogram. Electronically signed by: Kayla Leavitt DO 07/07/2025 12:53 PM EDT RP Dictated By: Kayla Leavitt DO Signed By: <Electronically signed by Kayla Leavitt DO in OV> 07/07/25 1253 DD/ 4 TD/TT: 07/03/25941 Orchard Worker: Procedure Note Donotuseinterpreter, Image - 07/07/2025 [facility] [address] [place], [place] [address] Mammography Report Signed Patient: Leslie BakerMR#: M [id number] : 1980Acct:[id number] Age/Sex: 44 / FADM Date: 07/03/25 Loc: HO.MAMMO Attending Dr: Madeline Land MD Ordering Physician: Madeline Ferro MD Results: 0Incomplete: Needs Additional Imaging Evaluation Date of Service: 07/03/25Follow Up: Additional Imagi ng Procedure(s): MM tomosynthesis screening BI Accession Number(s): [id number] cc: Madeline Ferro MD EXAMINATION: MM SCREENING DIGITAL BREAST TOMOSYNTHESIS, BILATERAL CLINICAL INFORMATION: Screening. Asymptomatic. COMPARISON: Mammography: Baseline. TECHNIQUE: Digital breast mammography with tomosynthesis is performed in both the craniocaudal and mediolateral oblique views along with computer-aided detection (CAD). FINDINGS: The breasts are heterogeneously dense, which may obscure small masses (ACR BI-RADS breast composition Category c). Left: Circumscribed oval mass upper outer breast far posterior depth. No suspicious calcifications or other abnormal findings. Right: Circumscribed oval mass upper central breast middle to posterior depth. No suspicious calcifications or other abnormal findings. MM/MM tomosynthesis screening BI IMPRESSION: Additional imaging is recommended ASSESSMENT: BI-RADS BI-RADS 0 - Incomplete: Needs additional Imaging. RECOMMENDATION: 1. Additional bilateral ultrasound of the bilateral breast. 2. Radiology department staff will contact the patient for additional imaging. Additional Imaging required This examination should not preclude the clinical evaluation of a suspicious palpable abnormality. This patient's information was entered into a reminder system with a target due date for their next mammogram. Electronically signed by: Kayla Leavitt DO 07/07/2025 12:53 PM EDT Dictated By: Kayla Leavitt DO Signed By: <Electronically signed by Kayla Leavitt DO in OV> 07/07/25 1253 DD/ 4 TD/TT: 07/03/25 09 Orchard Worker: us Madeline Land MD IMG BI PROCEDURES Fin al Result * Pap Smear (06/29/2025 10:46 AM EDT) Swab 06/29/2025 10:4 6 AM EDT 06/30/2025 8:07 AM EDT [facility] - 07/06/2025 11:14 AM EDT ----- ------- Name: Leslie Baker Age/Sex: 44/F : 1980 Unit#: [id number] Attend Dr: Madeline Ferro MD Re06/29/25 Status: DEP REF Location: HO.HHCLNP Disch: ----- ------- SPEC : [id number] RECD: 06/30/25 STATUS: RICARDA JASMINE NUM: [id number] LUCIA: 06/29/25-[address]: Madeline Ferro MD ENTERED: 06/30/25 SP TYPE: Pap Smr OTHR DR: ORDERED: Pap Smear, PAP path review Interpretation Unsatisfactory for evaluation, specimen processed and examined (following reprocessing with acid wash procedure), but unsatisfactory for evaluation of epithelial abnormality because of scant squamous epithelial component and abundant blood. Clinical Information LMP: 06/28/2025 Previous PAP test: Unknown date, WNL Other history: Encounter for Papanicolaou smear of cervix Material Received ThinPrep-Cervical PAP Disclaimer As of September 10, 2024, the technical services to include automated prescreening performed by the ThinPrep Imaging System, PAP screening and HPV testing will be performed at [facility] (CLIA #[id number]), [address] [place] [address]. Testing for HPV was performed using the Jg JENNIFER 6800 system. The presence of HPV in the female genital tract is associated with a number of diseases, including cervical carcinoma. The HPV DNA high risk pool tests for HPV 31, 33, 35, 39, 45, 51, 52, 56, 58, 59, 66 and 68. The testing for HPV 16 and 18 genotypes has also been performed. A positive result indicates detection of nucleic acid sequences from one or more subtypes, whereas a negative result indicates such sequences were not detected. All professional services are performed by [facility] ([address] [place] [address]; ; CLIA #[id number]). The PAP Test is a screening procedure with the inherent possibility of both false negative and false positive results. Results should be interpreted in the context of historic and current clinical findings. Reliability of the PAP Test is enhanced by performing the test on a regular repetitive basis. ----- ------- Signed (signature on file) Ofe Thomas MD 07/06/25 1114 ----- ------- END OF REPORT us Madeline Land MD LAB CYTOLOGY ORDERABL ES Final Result [facility] [address] [place] [phone] * XR Knee 4+ Views Left (05/14/2025 9:44 AM EDT) Anatomical Region Laterality Modality Lower Extremities, Knee Left [facility] 05/14/2025 9:44 AM EDT Narrative 05/14/2025 10:46 AM EDT [address] [address] XRay Report Signed Patient: Leslie Baker MR#: [id number] : 1980 Acct:[id number] Age/Sex: 44 / F ADM Date: 05/14/25 Loc: HO.HHCX Attending Dr: Madeline Land MD Ordering Physician: Madeline Ferro MD Date of Service: 05/14/25 Procedure(s): XR knee LT 4V Accession Number(s): [id number] cc: Madeline Ferro MD EXAMINATION: XR KNEE, [...] 05/14/25 1043 DD/ 0944 TD/TT: 05/14/25 1000 Orchard Worker: Procedure Note Donotuseinterpreter, Image - 05/14/2025 [place] [address] XRay Report Signed Patient: Leslie Baker#: M [id number] : 1980Acct:[id number] Age/Sex: 44 / FADM Date: 05/14/25 Loc: HO.HHCX Attending Dr: Madeline Land MD Ordering Physician: Madeline Ferro MD Date of Service: 05/14/25 Procedure(s): XR knee LT 4V Accession Number(s): [id number] cc: Madeline Ferro MD EXAMINATION: XR KNEE, [...] 05/14/25 1043 DD/ 0944 TD/TT: 05/14/25 1000 Orchard Worker: us Madeline Land MD IMG XR PROCEDURES Fin al Result * (ABNORMAL) Vitamin D, 25-Hydroxy, Total, Immunoassay (04/22/2025 11:25 AM EDT) Vitamin D 25-OH Total 20.8(L) >30 ng/mL [facility] Comment: Health Based Reference Values*< 20 ng/mL Aylwockzc84-52 ng/mL Insufficient> 30 ng/mL Sufficient*Jacob ZHENG. N [...] Land MD LAB BLOOD ORDERABLES Final Result [facility] [address] [place] [phone] * TSH with Reflex to Free T4 (04/22/2025 11:25 AM EDT) TSH reflex Free T4 1.37 0.32 - 4.0 uIU/mL [facility] Blood Venous blood specimen / Unknown 04/22/2025 11:25 AM EDT 04/22/2025 1:11 PM EDT us Madeline Land MD LAB BLOOD ORDERABLES Final Result [facility] [address] [place] [address] [phone] * CBC auto differential (04/22/2025 11:25 AM EDT) White Blood Count 7.5 4.8 - 10.8 X10*3/uL [facility] Red Blood Count 4.59 4.20 - 5.50 X10*6/uL [facility] Hemoglobin 13.2 12.0 - 16.0 g/dl [facility] Hematocrit 39.4 37.0 - 47.0 % [facility] Mean Corpuscular Volume 85.8 80.0 - 98.0 fL [facility] Mean Corpuscular Hemoglobin 28.8 27.0 - 33.0 pg [facility] Mean Corpuscular HGB Conc 33.5 31.0 - 35.0 g/dl [facility] Red Cell Distribution Width 13.1 11.0 - 16.0 % [facility] Platelet Count 275 160 - 400 X10*3/uL [facility] Mean Platelet Volume 11.0 9.4 - 12.3 fL [facility] Neutrophils Percent Auto 62.7 45 - 73 % [facility] Imm Gran Pct Auto 0.3 0.0 - 0.4 % [facility] Lymphocytes Percent Auto 29.9 20 - 40 % [facility] Monocytes Percent Auto 5.6 2 - 11 % [facility] Eosinophils Percent Auto 1.1 0 - 4 % [facility] Basophils Percent Auto 0.4 0 - 2 % [facility] NRBC Pct Auto 0.0 0.0 - 0.2 /100WBC [facility] Neutrophils Absolute Auto 4.7 2.0 - 8.3 x10*3/uL [facility] Imm Gran Abs Auto 0.02 0.00 - 0.03 X10*3/uL [facility] Lymphocytes Absolute Auto 2.2 1.2 - 4.9 X10*3/uL [facility] Monocytes Absolute Auto 0.4 0.1 - 1.2 X10*3/uL [facility] Eosinophils Absolute Auto 0.1 0.0 - 0.4 X10*3/uL [facility] Basophils Absolute Auto 0.0 0.0 - 0.2 X10*3/uL [facility] NRBC Abs Auto 0.000 0.0 - 0.012 X10*3/uL [facility] Blood Venous blood specimen / Unknown 04/22/2025 11:25 AM EDT 04/22/2025 1:11 PM EDT us Madeline Land MD LAB BLOOD ORDERABLES Final Result Performing Organization Address [facility] Co de Phone Number [facility] [address] [place] [phone] * Hepatitis C Antibody with Reflex to HCV, RNA, Quantitative, Real-Time PCR (04/22/2025 11:25 AM EDT) Pathologist [facility] Hepatitis C Antibody Nonreactive Nonreactive [facility] Comment:Antibodies to HCV no t detected; does not exclude early acuteHCV infection. Blood Venous blood specimen / Unknown 04/22/2025 11:25 AM EDT 04/22/2025 1:11 PM EDT Madeline Land MD LAB BLOOD ORDERABLES Final Result Performing Organization Address [facility] Co de Phone Number [facility] [address] [place] [phone] * HIV-1/2 Antigen and Antibodies, Fourth Generation, with Reflexes (04/22/2025 11:25 AM EDT) HIV AB/AG Nonreactive Nonreactive [facility] Comment:HIV-1 p24 Ag and/or HIV-1/HIV-2 Ab not detected.A test result that is nonreactive does not exclude thepossibility of exposure to or infection with HIV-1 and/orHIV-2. Nonreactive results in this assay for individualswith prior exposure to HIV-1 and/or HIV-2 may be due toantigen and antibody levels that are below the limit ofdetection of this assay.The [employer] HIV Ag/Ab Combo assay result andsupplemental assay results should be interpreted inconjunction with the patient's clinical presentation,history and other laboratory results. If the results areinconsistent with clinical evidence, additional testing issuggested to confirm the result. Blood Venous blood specimen / Unknown 04/22/2025 11:25 AM EDT 04/22/2025 1:11 PM EDT us Madeline Land MD LAB BLOOD ORDERABLES Final Result [facility] [address] [place] [phone] * Hemoglobin A1c (04/22/2025 11:25 AM EDT) Hemoglobin A1c 5.2 <6.0 % [facility] Comment:Hemoglobin A1C Refer ence Range Adults: 4.8 - 6.0 % Non diabetic: < 6.0 % Goal: < 7.0 %Additional Action Suggested: > 8.0 %Note: Hemoglobin A1c results are invalid for patients with abnormal amounts of HbF. Blood transfusions may impact the HbA1c concentration in the patient sample. Estimated Average Glucose 103 mg/dL [facility] Comment:eAG = Estimated ave rage glucose which is %A1C expressed asaverage glucose, using the formula of the N0M-NkthjcwOfbpuom Glucose study (ADAG), Diabetes Care, Vol.31,#8,Jun. 2007 Blood Venous blood specimen / Unknown 04/22/2025 11:25 AM EDT 04/22/2025 1:11 PM EDT us Madeline Land MD LAB BLOOD ORDERABLES Final Result Performing Organization Address City/[facility]/ZIP Co de Phone Number [facility] [address] [place] [address] [phone] * (ABNORMAL) Lipid Panel, Standard (04/22/2025 11:25 AM EDT) Triglycerides 61 <150 mg/dL [facility] Comment:Desirable Triglyceri de: less than 150 mg/dLBorderline High Triglyceride 150-199 mg/dLHigh Triglyceride: 200-499 mg/dLVery High Triglyceride: greater than or equal to 5OO mg/dL Cholesterol 196 <200 mg/dL [facility] Comment:Desirable Cholestero l: less than 200 mg/dLBorderline High Cholesterol: 200-239 mg/dLHigh Cholesterol: greater than 239 mg/dL LDL Cholesterol Calculated 131(H) <100 mg/dL [facility] Comment:Desirable LDL: less than 100 mg/dLNear Optimal/Above Optimal LDL: 110- 129 mg/dLBorderline High LDL: 130-159 mg/dLHigh LDL: 160-189 mg/dLVery High LDL: greater than or equal to 190 mg/dL HDL Cholesterol 53 >40 mg/dL [facility] Comment:Desirable HDL: great er than 40 mg/dL Note: This HDL assay may give artificially low results in patients with liver disease. Blood Venous blood specimen / Unknown 04/22/2025 11:25 AM EDT 04/22/2025 1:11 PM EDT us Madeline Land MD LAB BLOOD ORDERABLES Final Result Performing Organization Address City/[facility]/ZIP Co de Phone Number [facility] [address] [place] [address] [phone] * (ABNORMAL) Comprehensive Metabolic Panel (04/22/2025 11:25 AM EDT) Sodium 139 135 - 145 mmol/L [facility] Potassium 4.2 3.3 - 5.1 mmol/L [facility] Chloride 109(H) 96 - 108 mmol/L [facility] Carbon Dioxide 27 22 - 29 mmol/L [facility] Anion Gap 7(L) 12 - 20 [facility] Urea Nitrogen (BUN) 9 9 - 16 mg/dL [facility] Creatinine, Serum 0.64 0.5 - 1.4 mg/dL [facility] Estimated Glomerular Filt Rate >60 [facility] Comment:Chronic Kidney Disea se: Estimated GFR < 60 mL/min/1.44t5Rijiyk Kidney Disease: Estimated GFR < 15 mL/min/1.73m2 Glucose 86 60 - 115 mg/dL [facility] Calcium 8.9 8.4 - 10.2 mg/dL [facility] Bilirubin, Total 0.3 0.0 - 1.0 mg/dL [facility] Aspartate Amino Transferase 19 5 - 31 U/L [facility] Alanine Aminotransferase 16 0 - 31 U/L [facility] Total Protein 7.0 6.5 - 8.0 g/dL [facility] Albumin Level 4.2 3.5 - 5.0 g/dL [facility] Alkaline Phosphatase 97 39 - 117 U/L [facility] Blood Venous blood specimen / Unknown 04/22/2025 11:25 AM EDT 04/22/2025 1:11 PM EDT Madeline Land MD LAB BLOOD ORDERABLES Final Result [facility] [address] [place] [phone] * HPV mRNA E6/E7 (10/02/2019 9:58 AM EST) HPV mRNA E6/E7 Not Detected NOT DETECTED [facility] Comment: This test was performed using the APTIMA(R) HPV Assay ([employer] This assay detects E6/E7 viral messenger RNA (mRNA) from 14 high-risk HPV types (16,18,31,33,35,39,45,51, 52,56,58,59,66,68). For additional information please refer to: http://education.[employer].Mevvy/faq/MNB920a7 (This link is being provided for informational/ educational purposes only.) The analytical performance characteristics of this assay have been determined by [employer] [place], [place]. The modifications have not been cleared or approved by the FDA. This assay has been validated pursuant to the CLIA regulations and is used for clinical purposes. Test Performed by [facility] [place], [employer] [facility], [address] [place] [address] Stuart Lee M.D., Ph.D., Director of Laboratories , CLIA [id number] Please note: Effective 07/31/2016, HPV testing will be performed using [employer]'s APTIMA test which targets mRNA. Detecting mRNA instead of DNA, as in older methods, offers significant improvements in specificity. 10/02/2019 9:58 AM EST Madeline Land MD HISTORICAL/NON ORDERA BLE LABS Final Result [facility] [address] from Last 3 Months or Most Recently Relevant to Health Maintenance Insurance [facility] [employer] Care Teams Manager Voice Relationship Specialty Start Date End Date Madeline Ferro MD [address] [place] [id number] PCP - General Family Medicine 12/20/18
== END 2025-07-17 07:49 | disposition home or self-care (01) ==
LOC: HO.MAMMO 07:48
PROVIDERS: PCP Internal Medicine; Visit Provider Internal Medicine
DX: N63.15 Unspecified lump in the right breast, overlapping quadrants (principal); N63.21 Unspecified lump in the left breast, upper outer quadrant
CPT/HCPCS: 76642; 77062; 77066

== ENCOUNTER → 2025-07-17 08:00 | Outpatient (BNV) | payer MEDICARE, MEDICAID, SELFPAY | PROVIDERS: PCP Internal Medicine; Visit Provider Radiology Body Imaging | DX: R92.8 Other abnormal and inconclusive findings on diagnostic imaging of breast (principal); N60.02 Solitary cyst of left breast | CPT/HCPCS: 76642; 77066; G0279 ==

== ENCOUNTER 2025-09-16 13:22 | Outpatient (REF) | payer MEDICARE, MEDICAID, SELFPAY ==
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
--- OUTSIDE RECORDS SUMMARY | 2025-09-16 17:00 | XMS_ITS | Encounter Summary ---
Author Organization [employer] Address [address] [facility] [address] [place] [address] Care Team Providers Care Farmer Vegetable Name Role Phone Madeline Ferro MD Primary Care Provide r Encounter Details Date Type Department Care Team ([facility] st Contact Info) Description 07/06/2025 Orders Only [facility] [address] [place] [address] Madelien Ferro MD [address] [place] [address] Social History Tobacco Use Types Packs/Day Years [...] as of this encounter Plan of Treatment Not on file documented as of this encounter Procedures Procedure Name Priority Date/Time Associated Diagnosis Comments BI US BREAST LIMITED BILATERAL Routine 07/17/2025 8:10 AM EDT BI MAMMOGRAM DIAGNOSTIC TOMOSYNTHESIS BILATERAL Routine 07/17/2025 8:05 AM EDT documented in this encounter Results * BI US Breast Limited Bilateral (07/17/2025 8:10 AM EDT) Anatomical Region Laterality Modality Breast Bilateral Ultrasound 07/17/2025 8:10 AM EDT Narrative 07/17/2025 8:49 AM EDT [facility] [address] [place] [address] Ultrasound Report Signed Patient: Leslie Baker MR#: [id number] : 1980 Acct:[id number] Age/Sex: 45 / F ADM Date: 07/17/25 Loc: HO.MAMMO Attending Dr: Madeline Land MD Ordering Physician: Madeline Ferro MD Date of Service: 07/17/25 Procedure(s): US breast BI limited mamm only Accession Number(s): [id number] cc: Madeline Ferro MD EXAMINATIONS: 1. MM DIAGNOSTIC DIGITAL BREAST TOMOSYNTHESIS, BILATERAL 2. Targeted ultrasound of the right breast 3. Targeted ultrasound of the left breast CLINICAL INFORMATION: Callback from baseline screening for bilateral breasts findings: Right: Mass in the upper central breast middle to posterior depth Left: Mass in the upper outer quadrant far posterior depth COMPARISON: July 03, 2025 TECHNIQUE: Digital breast tomosynthesis is performed in full-field ML 90 degrees along with computer-aided detection (CAD). Synthesized 2D images are generated from the tomosynthesis. Spot compression tomosynthesis images were also obtained. FINDINGS: BREAST COMPOSITION: The breasts are heterogeneously dense, which may obscure small masses (ACR BI-RADS breast composition Category c). RIGHT BREAST: Approximately 0 7 cm focal asymmetry in the upper breast at approximately 12 o'clock position at 6 cm from the nipple (ML 90 degrees 37/72, spot CC 24/67). Targeted ultrasound of the right breast was performed at the location of the mammographic finding. The survey performed throughout the 11:00 to 1:00 axis did not reveal suspicious sonographic findings. LEFT BREAST: Approximately 0.9 cm oval mass in the upper outer quadrant at about 9-10 cm from the nipple (ML 90 degrees 24/84, spot CC 17/69). Targeted ultrasound of the left breast was performed at the location of the mammographic finding. The survey shows a 0.9 x 0.5 x 0.8 cm simple cyst at 2 o'clock position 5 cm from the nipple. No internal vascularity demonstrated with color Doppler evaluation. The finding correlates with the mammographic finding. US/US breast BI limited mamm only IMPRESSION: RIGHT BREAST: 0.7 cm focal asymmetry in the upper breast at 6 cm from the nipple, without definite sonographic correlate. Probably benign. A 6-month follow-up mammogram is recommended. LEFT BREAST: 0.9 cm simple cyst at 2 o'clock position 5 cm from the nipple. Benign, no evidence of malignancy. No dedicated imaging follow-up needed. Normal interval follow-up mammogram is recommended in 12 months. ASSESSMENT: BI-RADS 3 - Probably benign finding(s) - 6 month follow-up suggested RECOMMENDATION: 6 Month F/U Results were provided to the patient at time of visit by the technologist. This patient's information was entered into a reminder system with a target due date for their next mammogram. Electronically signed by: Ilene Palacio MD 07/17/2025 08:46 AM EDT Dictated By: Ilene Palacio MD Signed By: <Electronically signed by Ilene Palacio MD in OV> 07/17/25 0846 DD/ 0810 TD/TT: 07/17/25 0837 Muff Winder: Procedure Note Donotuseinterpreter, Image - [facility] [address] [place] [address] Ultrasound Report Signed Patient: Leslie Baker#: M [id number] : 1980Acct:[id number] Age/Sex: 45 / FADM Date: 07/17/25 Loc: HO.MAMMO Attending Dr: Madeline Land MD Ordering Physician: Madeline Ferro MD Date of Service: 07/17/25 Procedure(s): US breast BI limited mamm only Accession Number(s): [id number] cc: Madeline Ferro MD EXAMINATIONS: 1. MM DIAGNOSTIC DIGITAL BREAST TOMOSYNTHESIS, BILATERAL 2. Targeted ultrasound of the right breast 3. Targeted ultrasound of the left breast CLINICAL INFORMATION: Callback from baseline screening for bilateral breasts findings: Right: Mass in the upper central breast middle to posterior depth Left: Mass in the upper outer quadrant far posterior depth COMPARISON: July 03, 2025 TECHNIQUE: Digital breast tomosynthesis is performed in full-field ML 90 degrees along with computer-aided detection (CAD). Synthesized 2D images are generated from the tomosynthesis. Spot compression tomosynthesis images were also obtained. FINDINGS: BREAST COMPOSITION: The breasts are heterogeneously dense, which may obscure small masses (ACR BI-RADS breast composition Category c). RIGHT BREAST: Approximately 0 7 cm focal asymmetry in the upper breast at approximately 12 o'clock position at 6 cm from the nipple (ML 90 degrees 37/72, spot CC ). Targeted ultrasound of the right breast was performed at the location of the mammographic finding. The survey performed throughout the 11:00 to 1:00 axis did not reveal suspicious sonographic findings. LEFT BREAST: Approximately 0.9 cm oval mass in the upper outer quadrant at about 9-10 cm from the nipple (ML 90 degrees , spot CC ). Targeted ultrasound of the left breast was performed at the location of the mammographic finding. The survey shows a 0.9 x 0.5 x 0.8 cm simple cyst at 2 o'clock position 5 cm from the nipple. No internal vascularity demonstrated with color Doppler evaluation. The finding correlates with the mammographic finding. US/US breast BI limited mamm only IMPRESSION: RIGHT BREAST: 0.7 cm focal asymmetry in the upper breast at 6 cm from the nipple, without definite sonographic correlate. Probably benign. A 6-month follow-up mammogram is recommended. LEFT BREAST: 0.9 cm simple cyst at 2 o'clock position 5 cm from the nipple. Benign, no evidence of malignancy. No dedicated imaging follow-up needed. Normal interval follow-up mammogram is recommended in 12 months. ASSESSMENT: BI-RADS 3 - Probably benign finding(s) - 6 month follow-up suggested RECOMMENDATION: 6 Month F/U Results were provided to the patient at time of visit by the technologist. This patient's information was entered into a reminder system with a target due date for their next mammogram. Electronically signed by: Ilene Palacio MD 07/17/2025 08:46 AM EDT Dictated By: Ilene Palacio MD Signed By: <Electronically signed by Ilene Palacio MD in OV> 07/17/25 0846 DD/ 0810 TD/TT: 07/17/25 0837 Muff Winder: us Madeline Land MD IMG US PROCEDURES Jr beba Result - Final * BI Mammogram Diagnostic Tomosynthesis Bilateral (07/17/2025 8:05 AM EDT) Anatomical Region Laterality Modality Breast Bilateral Mammography 07/17/2025 8:05 AM EDT Narrative 07/17/2025 8:49 AM EDT [facility] [address] [place], [place] [address] Mammography Report Signed Patient: Leslie Baker MR#: M [id number] : 1980 Acct:[id number] Age/Sex: 45 / F ADM Date: 07/17/25 Loc: HO.MAMMO Attending Dr: Madeline Land MD Ordering Physician: Madeline Ferro MD Results: 3.6MProbably Benign Finding - Short 6 M F/U Suggested Date of Service: 07/17/25 Follow Up: 6 Month F/U Procedure(s): MM tomosynthesis diagnostic BI Accession Number(s): [id number] cc: Madeline Ferro MD EXAMINATIONS: 1. MM DIAGNOSTIC DIGITAL BREAST TOMOSYNTHESIS, BILATERAL 2. Targeted ultrasound of the right breast 3. Targeted ultrasound of the left breast CLINICAL INFORMATION: Callback from baseline screening for bilateral breasts findings: Right: Mass in the upper central breast middle to posterior depth Left: Mass in the upper outer quadrant far posterior depth COMPARISON: July 03, 2025 TECHNIQUE: Digital breast tomosynthesis is performed in full-field ML 90 degrees along with computer-aided detection (CAD). Synthesized 2D images are generated from the tomosynthesis. Spot compression tomosynthesis images were also obtained. FINDINGS: BREAST COMPOSITION: The breasts are heterogeneously dense, which may obscure small masses (ACR BI-RADS breast composition Category c). RIGHT BREAST: Approximately 0 7 cm focal asymmetry in the upper breast at approximately 12 o'clock position at 6 cm from the nipple (ML 90 degrees 37/72, spot CC 24/67). Targeted ultrasound of the right breast was performed at the location of the mammographic finding. The survey performed throughout the 11:00 to 1:00 axis did not reveal suspicious sonographic findings. LEFT BREAST: Approximately 0.9 cm oval mass in the upper outer quadrant at about 9-10 cm from the nipple (ML 90 degrees 24/84, spot CC 17/69). Targeted ultrasound of the left breast was performed at the location of the mammographic finding. The survey shows a 0.9 x 0.5 x 0.8 cm simple cyst at 2 o'clock position 5 cm from the nipple. No internal vascularity demonstrated with color Doppler evaluation. The finding correlates with the mammographic finding. MM/MM tomosynthesis diagnostic BI IMPRESSION: RIGHT BREAST: 0.7 cm focal asymmetry in the upper breast at 6 cm from the nipple, without definite sonographic correlate. Probably benign. A 6-month follow-up mammogram is recommended. LEFT BREAST: 0.9 cm simple cyst at 2 o'clock position 5 cm from the nipple. Benign, no evidence of malignancy. No dedicated imaging follow-up needed. Normal interval follow-up mammogram is recommended in 12 months. ASSESSMENT: BI-RADS 3 - Probably benign finding(s) - 6 month follow-up suggested RECOMMENDATION: 6 Month F/U Results were provided to the patient at time of visit by the technologist. This patient's information was entered into a reminder system with a target due date for their next mammogram. Electronically signed by: Ilene Palacio MD 07/17/2025 08:46 AM EDT RP Workstation: [employer] It [employer] Check Dictated By: Ilene Palacio MD Signed By: <Electronically signed by Ilene Palacio MD in OV> 07/17/25845 DD/ 4 TD/TT: 07/17/25804 Muff Winder: Procedure Note Donotuseinterpreter, Image - [facility]/20[facility] [address] [place] [address] Mammography Report Signed Patient: Leslie Baker#: M [id number] : 1980Acct:[id number] Age/Sex: 45 / FADM Date: 07/17/25 Loc: HO.MAMMO Attending Dr: Madeline Land MD Ordering Physician: Madeline Ferro MD Results: 3.6MProbably Benign Finding - Short 6 M F/U Suggested Date of Service: 07/17/25Follow Up: 6 Month F/U Procedure(s): MM tomosynthesis diagnostic BI Accession Number(s): [id number] cc: Madeline Ferro MD EXAMINATIONS: 1. MM DIAGNOSTIC DIGITAL BREAST TOMOSYNTHESIS, BILATERAL 2. Targeted ultrasound of the right breast 3. Targeted ultrasound of the left breast CLINICAL INFORMATION: Callback from baseline screening for bilateral breasts findings: Right: Mass in the upper central breast middle to posterior depth Left: Mass in the upper outer quadrant far posterior depth COMPARISON: July 03, 2025 TECHNIQUE: Digital breast tomosynthesis is performed in full-field ML 90 degrees along with computer-aided detection (CAD). Synthesized 2D images are generated from the tomosynthesis. Spot compression tomosynthesis images were also obtained. FINDINGS: BREAST COMPOSITION: The breasts are heterogeneously dense, which may obscure small masses (ACR BI-RADS breast composition Category c). RIGHT BREAST: Approximately 0 7 cm focal asymmetry in the upper breast at approximately 12 o'clock position at 6 cm from the nipple (ML 90 degrees 37/72, spot CC 24/67). Targeted ultrasound of the right breast was performed at the location of the mammographic finding. The survey performed throughout the 11:00 to 1:00 axis did not reveal suspicious sonographic findings. LEFT BREAST: Approximately 0.9 cm oval mass in the upper outer quadrant at about 9-10 cm from the nipple (ML 90 degrees 24/84, spot CC 17/69). Targeted ultrasound of the left breast was performed at the location of the mammographic finding. The survey shows a 0.9 x 0.5 x 0.8 cm simple cyst at 2 o'clock position 5 cm from the nipple. No internal vascularity demonstrated with color Doppler evaluation. The finding correlates with the mammographic finding. MM/MM tomosynthesis diagnostic BI IMPRESSION: RIGHT BREAST: 0.7 cm focal asymmetry in the upper breast at 6 cm from the nipple, without definite sonographic correlate. Probably benign. A 6-month follow-up mammogram is recommended. LEFT BREAST: 0.9 cm simple cyst at 2 o'clock position 5 cm from the nipple. Benign, no evidence of malignancy. No dedicated imaging follow-up needed. Normal interval follow-up mammogram is recommended in 12 months. ASSESSMENT: BI-RADS 3 - Probably benign finding(s) - 6 month follow-up suggested RECOMMENDATION: 6 Month F/U Results were provided to the patient at time of visit by the technologist. This patient's information was entered into a reminder system with a target due date for their next mammogram. Electronically signed by: Ilene Palacio MD 07/17/2025 08:46 AM EDT Dictated By: Ilene Palacio MD Signed By: <Electronically signed by Ilene Palacio MD in OV> 07/17/25845 DD/ 4 TD/TT: 07/17/25804 Muff Winder: us Madeline Land MD IMG BI PROCEDURES Jr beba Result - Final documented in this encounter Visit Diagnoses Not on filedocumented in this encounter Additional Health Concerns Assessment Noted Time PHQ-9 Depression Total Score: 8 04/22/20 25 10:18 AM EDT documented as of this encounter Care Teams Farmer Vegetable Relationship Specialty Start Date End Date Madeline Ferro MD [address] [place] [address] PCP - General Family Medicine 12/20/18 documented as of this encounter
--- OUTSIDE RECORDS SUMMARY | 2025-09-16 17:00 | XMS_ITS | Encounter Summary ---
Author Organization [employer] Address [address] [place] [address] [address] [place] [address] Care Team Providers Care Sanitary Landfill Supervisor Name Role Phone Madeline Ferro MD Primary Care Provide r Reason for Visit * Reason Comments Med Change Request Encounter Details Date Type Department Care Team ([facility] st Contact Info) Description 04/24/2025 Refill [facility] [address] [place], [place] [phone] Madeline Ferro MD [address] [place] [address] Class 2 severe obesity due to excess [...] (BMI) of 36.0 to 36.9 in adult documented in this encounter Additional Health Concerns Assessment Noted Time PHQ-9 Depression Total Score: 8 04/22/20 25 10:18 AM EDT documented as of this encounter Care Teams Sanitary Landfill Supervisor Relationship Specialty Start Date End Date Madeline Ferro MD [address] [place] [address] PCP - General Family Medicine 12/20/18 documented as of this encounter
--- OUTSIDE RECORDS SUMMARY | 2025-09-16 17:00 | XMS_ITS | Encounter Summary ---
Author Organization [employer] Address [address] [place] [address] [address] [place] [address] Care Team Providers Care Media Reconciliation Specialist Name Role Phone Madeline Ferro MD Primary Care Provide r Reason for Visit * Reason Onset Date Comments Referral 03/09/2023 Encounter Details Date Type Department Care Team ([facility] st Contact Info) Description 03/09/2023 Telephone [facility] [address] [place] [address] Madeline Ferro MD [address] [place] [address] Referral Social History Tobacco Use Types Packs/Day [...] Miscellaneous Notes * Telephone Encounter - Randy Valenzueal - 03/09/2023 11:13 AM EDT Tc from pt requesting status on Referral for physical therapy order on 02/28/2023 Please contact pt at [phone] documented in this encounter Plan of Treatment Not on file documented as of this encounter Visit Diagnoses Not on filedocumented in this encounter Additional Health Concerns Assessment Noted Time PHQ-9 Depression Total Score: 14 023 11:09 AM EDT documented as of this encounter Care Teams Media Reconciliation Specialist Relationship Specialty Start Date End Date Madeline Ferro MD [address] [place] [address] PCP - General Family Medicine 12/20/18 documented as of this encounter
--- OUTSIDE RECORDS SUMMARY | 2025-09-16 17:00 | XMS_ITS | Encounter Summary ---
Author Organization [employer] Address [address] [facility] [address] [place] [address] Care Team Providers Care Photoengraving Proofer Apprentice Name Role Phone Madeline Ferro MD Primary Care Provide r Reason for Visit * Reason Comments Med Refill Encounter Details Date Type Department Care Team ([facility] st Contact Info) Description 01/22/2025 Refill [facility] [address] [place] [address] Madeline Ferro MD [address] [place] [address] Social History Tobacco Use Types Packs/Day Years [...] documented as of this encounter Care Teams Photoengraving Proofer Apprentice Relationship Specialty Start Date End Date Madeline Ferro MD [address] [place] [address] PCP - General Family Medicine 12/20/18 documented as of this encounter
--- OUTSIDE RECORDS SUMMARY | 2025-09-16 17:00 | XMS_ITS | Encounter Summary ---
Author Organization [employer] Address [address] [place] [address] [address] [place] [address] Care Team Providers Care Wool Hat Sanding Machine Operator Name Role Phone Madeline Ferro MD Primary Care Provide r Encounter Details Date Type Department Care Team (Latest Contact Info) Description 09/16/2025 Travel Social History Tobacco Use Types Packs/Day Years [...] documented as of this encounter Care Teams Wool Hat Sanding Machine Operator Relationship Specialty Start Date End Date Madeline Ferro MD [address] [place] [address] PCP - General Family Medicine 12/20/18 documented as of this encounter
--- OUTSIDE RECORDS SUMMARY | 2025-09-16 17:00 | XMS_ITS | Clinical Summary ---
Author Organization [employer] Address [address] [place] [address] [address] [place] [address] Care Team Providers Care Turbo Operator Name Role Phone Madeline Ferro MD Primary Care Provide r Allergies Active Allergy Reactions Criticality Noted Date Comments Penicillins Other reaction(s): rash Medications * This document contains information received from the source organization and may not represent a complete record from that organization. DULoxetine (Cymbalta) [address] capsule Take 60 mg by mouth Once per day. 2 Active traMADol (Ultram) 50 MG tablet Take 50 mg by mouth every 8 (eight) hours if needed. 2 Active OXcarbazepine (Trileptal) 600 MG tablet 3 Active cyclobenzaprine (Flexeril) 10 MG tablet TAKE 1 TABLET BY MOUTH 3 TIMES A DAY NEEDED FOR MUSCLE SPASMS 60 tablet 4 Active azithromycin (Zithromax) 250 MG tablet Take 2 tabs PO daily x 1d then 1 tab PO daily on D2 to D5 6 tablet 4 Active cholecalciferol (Vitamin D-3) 25 MCG (1000 UT) tabletIndications :Vitamin D deficiency Take 1 tablet (25 mcg) by mouth Once per day. 60 tablet 1 5 Active fluticasone (Flonase) 50 MCG/ACT nasal spray ADMINISTER 1 SPRAY INTO EACH NOSTRIL ONCE PER DAY. 48 mL 5 Active Acetaminophen Extra Strength 500 MG tabletIndications :Acute right ankle pain,Closed nondisplaced fracture of fifth metatarsal bone of right foot, initial encounter TAKE 1 TABLET (500 MG) BY MOUTH EVERY 6 (SIX) HOURS IF NEEDED FOR MILD PAIN. 120 tablet 5 Active naproxen (Naprosyn) 500 MG tabletIndications :Chronic bilateral low back pain without sciatica Take 1 tablet (500 mg) by mouth 2 times daily. 60 tablet 5 Active triamcinolone (Kenalog) 0.1 % creamIndications: Dry skin dermatitis Apply topically if needed in the morning and at bedtime (pain and swelling). 30 g 2 5 Active Tirzepatide-Weigh t Management (Zepbound) 5 MG/0.5ML solution auto-injectorIndi cations:Class 1 obesity due to excess calories with serious comorbidity and body mass index (BMI) of 33.0 to 33.9 in adult INJECT 0.5 ML (5 MG) UNDER THE SKIN 1 (ONE) TIME PER WEEK 2 mL 5 Active Active Problems Problem Noted Date Diagnosed Date Encounter for Papanicolaou smear of cervix 06/29 Assessment & Plan (09/16/2025 10:47 AM EDT): PAP smear repeated today, she will be contacted with results Assessment & Plan (06/29/2025 11:28 AM EDT): [...] XRAY ordered patient will be contacted with [facility] 06/26/2023 Assessment & Plan (06/26/2023 10:08 AM [...] only takes it if needed) Seizure disorder ([facility]) 11/26/2012 Assessment & Plan (06/26/2023 10:07 AM EDT): Continue to follow with neurologist Continue with current medication regimen Depressive disorder 11/26/2012 Constipation 11/26/2012 Encounters Date Type Department Care Team Description 09/16/2025 10:00 AM EDT Procedure Visit [facility] MEDICINE [address] [place] [address] Madeline Ferro MD Encounter for Papanicolaou smear of cervix 09/16/2025 Travel 08/03/2025 Telephone [facility] OPTOMETRY [address] [place] [address] Delmy Potts OD 07/06/2025 Results Follow-Up [facility] CHC MED & PEDS [address] [place] [address] Madeline Ferro MD Pap Smear 07/06/2025 Orders Only [facility] MED & PEDS [address] [place] [address] Madeline Ferro MD 07/02/2025 Refill [facility] MEDICINE [address] [place] [address] Madeline Ferro MD Class 1 obesity due to excess calories with serious comorbidity and body mass index (BMI) of 33.0 to 33.9 in adult 06/29/2025 10:15 AM EDT Procedure Visit [facility] MEDICINE [address] [place] [address] Madeline Ferro MD Abnormal skin of vulva (Primary Dx); Chronic bilateral low back pain without sciatica; Dry skin dermatitis; Class 1 obesity due to excess calories with serious comorbidity and body mass index (BMI) of 33.0 to 33.9 in adult; Encounter for Papanicolaou smear of cervix; Dietary counseling; Exercise counseling 06/29/2025 Travel 06/26/2025 Telephone [facility] MEDICINE [address] [place] [address] Madeline Ferro MD Chart Prep from Last 3 Months Immunizations Immunization Administration [...] Mass Index 34.58 09/16/2025 10:26 AM EDT Plan of Treatment Health Maintenance Due Date Last Done Comments Family Planning (PISQ) 1997 HPV Vaccines (1 - 3-dose series) 1997 HPV/Cotest 10/02/2024 10/02/2019 COVID-19 Vaccine ( season) 2025 Influenza Vaccine (#1) 2025 4, 09/08/2013, 11/26/2012, Additional history exists Alcohol/Substance Use Screening 04/22/2026 04/22/2025 Depression Screening 04/22/2026 04/22/2025, 06/04/20 25 Disability Screening 04/22/2026 04/22/2025 SDOH Screening 04/22/2026 04/22/2025 Tobacco Screening 09/16/2026 09/16/2025 Mammogram 07/17/2027 07/17/2025, 0807/2025, 07/03/2025 Cervical Cancer Screening 06/29/2028 Pap Smear [...] TOMOSYNTHESIS BILATERAL Routine 07/17/2025 8:05 AM EDT BI MAMMOGRAM SCREENING TOMOSYNTHESIS BILATERAL Routine 07/03/2025 9:25 AM EDT Encounter for screening mammogram for malignant neoplasm of breast PAP SMEAR Routine 06/29/2025 10:46 AM EDT Encounter for Papanicolaou smear of cervix HEPATITIS C AB W/REFL TO HCV RNA, [...] Relevant to Health Maintenance Results * BI US Breast Limited Bilateral (07/17/2025 8:10 AM EDT) Anatomical Region Laterality Modality Breast Bilateral Ultrasound 07/17/2025 8:10 AM EDT Narrative 07/17/2025 8:49 AM EDT [facility] [address] [place] [address] Ultrasound Report Signed Patient: Leslie Baker MR#: [id number] : 1980 Acct:[id number] Age/Sex: 45 / F ADM Date: 07/17/25 Loc: [facility] Attending Dr: Madeline Land MD Ordering Physician: Madeline Ferro MD Date of Service: 07/17/25 Procedure(s): US breast BI limited mamm only Accession Number(s): [id number] cc: Madeline Ferro MD EXAMINATIONS: 1. MM [...] signed by Ilene Palacio MD in OV> 07/17/2546 DD/ 0810 TD/TT: 07/17/25 0837 Pharm Tech: Procedure Note Donotuseinterpreter, Image - 07/17/2025 [facility] [address] [place] [address] Ultrasound Report Signed Patient: Leslie Baker#: M [id number] : 1980Acct:[id number] Age/Sex: 45 / FADM Date: 07/17/25 Loc: HO.MAMMO Attending Dr: Madeline Land MD Ordering Physician: Madeline Ferro MD Date of Service: 07/17/25 Procedure(s): US breast BI limited mamm only Accession Number(s): [id number] cc: Madeline Ferro MD EXAMINATIONS: 1. MM [...] signed by Ilene Palacio MD in OV> 07/17/2546 DD/ 9 TD/TT: 07/17/2537 Pharm Tech: us Madeline Land MD IMG US PROCEDURES Jr beba Result - Final * BI Mammogram Diagnostic Tomosynthesis Bilateral (07/17/2025 8:05 AM EDT) Anatomical Region Laterality Modality Breast Bilateral Mammography 07/17/2025 8:05 AM EDT Narrative 07/17/2025 8:49 AM EDT [facility] [address] [place] [address] Mammography Report Signed Patient: Leslie Baker MR#: M [id number] : 1980 Acct:[id number] Age/Sex: 45 / F ADM Date: 07/17/25 Loc: HO.MAMMO Attending Dr: Madeline Land MD Ordering Physician: Madeline Ferro MD Results: 3.6MProbably Benign Finding - Short 6 M F/U Suggested Date of Service: 07/17/25 Follow Up: 6 Month F/U Procedure(s): MM tomosynthesis diagnostic BI Accession Number(s): [id number] cc: Madeline Ferro MD EXAMINATIONS: 1. MM [...] signed by Ilene Palacio MD in OV> 07/17/2546 DD/ 0805 TD/TT: 07/17/25 0805 Pharm Tech: Procedure Note Donotuseinterpreter, Image - 07/17/2025 [facility] [address] [place] [address] [place] [address] Mammography Report Signed Patient: Leslie BakerMR#: M [id number] : 1980Acct:[id number] Age/Sex: 45 / FADM Date: 07/17/25 Loc: [facility] Attending Dr: Madeline Land MD Ordering Physician: Madeline Ferro MD Results: 3.6MProbably Benign Finding - Short 6 M F/U Suggested Date of Service: 07/17/25Follow Up: 6 Month F/U Procedure(s): MM tomosynthesis diagnostic BI Accession Number(s): [id number] cc: Madeline Ferro MD EXAMINATIONS: 1. MM [...] Ilene Palacio MD 07/17/2025 08:46 AM EDT Workstation: [id number] Dictated By: Ilene Palacio MD Signed By: <Electronically signed by Ilene Palacio MD in OV> 07/17/2546 DD/ 4 TD/TT: 07/17/25804 Pharm Tech: us Madeline Land MD IMG BI PROCEDURES Jr beba Result - Final * BI Mammogram Screening Tomosynthesis Bilateral (07/03/2025 9:25 AM EDT) Anatomical Region Laterality Modality Breast Bilateral Mammography 07/03/2025 9:25 AM EDT Narrative 07/07/2025 12:56 PM EDT [facility] [address] [place] [address] Mammography Report Signed Patient: Leslie Baker MR#: [id number] : 1980 Acct:[id number] Age/Sex: 44 / F ADM Date: 07/03/25 Loc: HO.MAMMO Attending Dr: Madeline Land MD Ordering Physician: Madeline Ferro MD Results: 0Incomplete: Needs Additional Imaging Evaluation Date of Service: 07/03/25 Follow Up: Additional Imagi ng Procedure(s): MM tomosynthesis screening BI Accession Number(s): [id number] cc: Madeline Ferro MD EXAMINATION: MM SCREENING [...] OV> 07/07/25 1253 DD/ 4 TD/TT: 07/03/25941 Pharm Tech: Procedure Note Donotuseinterpreter, Image - 07/07/2025 [facility] [address] [place] [address] Mammography Report Signed Patient: Leslie BakerMR#: M [id number] : 1980Acct:[id number] Age/Sex: 44 / FADM Date: 07/03/25 Loc: [facility] Attending Dr: Madeline Land MD Ordering Physician: Madeline Ferro MD Results: 0Incomplete: Needs Additional Imaging Evaluation Date of Service: 07/03/25Follow Up: Additional Imagi ng Procedure(s): MM tomosynthesis screening BI Accession Number(s): [id number] cc: Madeline Ferro MD EXAMINATION: MM SCREENING [...] Leavitt DO in OV> 07/07/25 1253 DD/ 0925 TD/TT: 07/03/25 0942 Pharm Tech: Madeline Land MD IMG BI PROCEDURES Fin al Result * Pap Smear (06/29/2025 10:46 AM EDT) Swab 06/29/2025 10:4 6 AM EDT 06/30/2025 8:07 AM EDT [facility] - 07/06/2025 11:14 AM EDT ----- ------- Name: Tico MontalvoLeslie leslie Age/Sex: 44/F : 1980 Unit#: [id number] Attend Dr: Madeline Ferro MD Re06/29/25 Status: [facility] ----- ------- SPEC : [id number] RECD: 06/30/25 STATUS: RICARDA JASMINE NUM: [id number] LUCIA: 06/29/[address] [facility] [address]: Madeline Ferro MD ENTERED: 06/30/25 SP [...] and HPV testing will be performed at [facility] (CLIA #[id number]), [address] [place] [address]. Testing for HPV was performed using the [...] detected. All professional services are performed by [facility] ([address] [place] [address], [place] [address]; ; CLIA #[id number]). The PAP Test is a screening procedure [...] 07/06/25 1114 ----- ------- END OF REPORT Madeline Land MD LAB CYTOLOGY ORDERABL ES Final Result [facility] [address] [place] [phone] * Hepatitis C Antibody with Reflex to HCV, RNA, Quantitative, Real-Time PCR (04/22/2025 11:25 AM EDT) Hepatitis C Antibody Nonreactive Nonreactive [facility] Comment:Antibodies to HCV no t detected; does not exclude early acuteHCV infection. Blood Venous blood specimen / Unknown 04/22/2025 11:25 AM EDT 04/22/2025 1:11 PM EDT Madeline Land MD LAB BLOOD ORDERABLES Final Result Performing Organization Address [facility]/ZIP Co de Phone Number [facility] [address] [place] [address] [phone] * HIV-1/2 Antigen and Antibodies, Fourth Generation, with Reflexes (04/22/2025 11:25 AM EDT) HIV AB/AG Nonreactive Nonreactive [facility] Comment:HIV-1 p24 Ag and/or HIV-1/HIV-2 Ab not detected.A test result that is nonreactive does not exclude thepossibility of exposure to or infection with HIV-1 and/orHIV-2. Nonreactive results in this assay for individualswith prior exposure to HIV-1 and/or HIV-2 may be due toantigen and antibody levels that are below the limit ofdetection of this assay.The [employer] HIV Ag/Ab Combo assay result andsupplemental assay results should be interpreted inconjunction with the patient's clinical presentation,history and other laboratory results. If the results areinconsistent with clinical evidence, additional testing issuggested to confirm the result. Blood Venous blood specimen / Unknown 04/22/2025 11:25 AM EDT 04/22/2025 1:11 PM EDT us Madeline Land MD LAB BLOOD ORDERABLES Final Result Performing Organization Address [facility] Co de Phone Number [facility] [address] [place] [address] [phone] * (ABNORMAL) Lipid Panel, Standard (04/22/2025 11:25 AM EDT) Triglycerides 61 <150 mg/dL [facility] Comment:Desirable Triglyceri de: less than 150 mg/dLBorderline High Triglyceride 150-199 mg/dLHigh Triglyceride: 200-499 mg/dLVery High Triglyceride: greater than or equal to 5OO mg/dL Cholesterol 196 <200 mg/dL [facility] Comment:Desirable Cholestero l: less than 200 mg/dLBorderline High Cholesterol: 200-239 mg/dLHigh Cholesterol: greater than 239 mg/dL LDL Cholesterol Calculated 131(H) <100 mg/dL [facility] Comment:Desirable LDL: less than 100 mg/dLNear Optimal/Above Optimal LDL: 110- 129 mg/dLBorderline High LDL: 130-159 mg/dLHigh LDL: 160-189 mg/dLVery High LDL: greater than or equal to 190 mg/dL HDL Cholesterol 53 >40 mg/dL [facility] Comment:Desirable HDL: great er than 40 mg/dL Note: This HDL assay may give artificially low results in patients with liver disease. Blood Venous blood specimen / Unknown 04/22/2025 11:25 AM EDT 04/22/2025 1:11 PM EDT Madeline Land MD LAB BLOOD ORDERABLES Final Result [facility] [address] [place] [phone] * HPV mRNA E6/E7 (10/02/2019 9:58 AM EST) HPV mRNA E6/E7 Not Detected NOT DETECTED [facility] Comment: This test was performed using the APTIMA(R) HPV Assay ([employer] This assay detects E6/E7 viral messenger RNA (mRNA) from 14 high-risk HPV types (16,18,31,33,35,39,45,51, 52,56,58,59,66,68). For additional information please refer to: http://education.PlanetHS.Fluid Stone/faq/QOY913h6 (This link is being provided for informational/ educational purposes only.) The analytical performance characteristics of this assay have been determined by [employer] [place], [place]. The modifications have not been cleared or approved by the FDA. This assay has been validated pursuant to the CLIA regulations and is used for clinical purposes. Test Performed by [employer] [place], [facility], [address] [place] [address] Stuart Lee M.D., Ph.D., Director of Laboratories , [facility] [id number] Please note: Effective 07/31/2016, HPV testing will be performed using [employer] APTIMA test which targets mRNA. Detecting mRNA instead of DNA, as in older methods, offers significant improvements in specificity. 10/02/2019 9:58 AM EST us Madeline Land MD HISTORICAL/NON ORDERA BLE LABS Final Result [facility] [address] from Last 3 Months or Most Recently Relevant to Health Maintenance Insurance [facility] MEDIC[place] [address] [place] [id number] GENERIC TPL Care Teams Turbo Operator Relationship Specialty Start Date End Date Madeline Ferro MD [address] [place] [address] PCP - General Family Medicine 12/20/18
== END 2025-09-16 13:23 | disposition home or self-care (01) ==
LOC: HO.HHCLNP 13:22
PROVIDERS: Visit Provider Internal Medicine
DX: Z12.4 Encounter for screening for malignant neoplasm of cervix (principal); Z11.51 Encounter for screening for human papillomavirus (HPV)
CPT/HCPCS: 87626; 88175

== ENCOUNTER 2025-10-20 09:31 | Outpatient (REF) | payer MEDICARE, MEDICAID, SELFPAY ==
[2025-10-20 10:32] LABS: MANUAL DIFF FLAG NO
[2025-10-20 11:01] LABS: Hematocrit 39.3 % (37.0-47.0); Hemoglobin 12.9 g/dl (12.0-16.0); Imm Gran Abs Auto 0.02 X10*3/uL (0.00-0.03); Imm Gran Pct Auto 0.2 % (0.0-0.4); Lymphocytes Absolute Auto 2.8 X10*3/uL (1.2-4.9); Mean Corpuscular HGB Conc 32.8 g/dl (31.0-35.0); Mean Corpuscular Hemoglobin 29.1 pg (27.0-33.0); Mean Corpuscular Volume 88.5 fL (80.0-98.0); NRBC Abs Auto 0.000 X10*3/uL (0.0-0.012); NRBC Pct Auto 0.0 /100WBC (0.0-0.2); Platelet Count 272 X10*3/uL (160-400); Red Blood Count 4.44 X10*6/uL (4.20-5.50); White Blood Count 8.7 X10*3/uL (4.8-10.8)
[2025-10-20 11:54] LABS: Alanine Aminotransferase 17 U/L (0-31); Albumin Level 4.4 g/dL (3.5-5.0); Alkaline Phosphatase 111 U/L (39-117); Anion Gap 13 (12-20); Aspartate Amino Transferase 17 U/L (5-31); Blood Urea Nitrogen 11 mg/dL (9-16); Calcium 9.0 mg/dL (8.4-10.2); Carbon Dioxide 27 mmol/L (22-29); Chloride 106 mmol/L (96-108); Estimated Glomerular Filt Rate > 60; Potassium 4.2 mmol/L (3.3-5.1); Sodium 142 mmol/L (135-145); Total Protein 7.2 g/dL (6.5-8.0)
== END 2025-10-20 09:32 | disposition home or self-care (01) ==
LOC: HO.LAB 09:31
PROVIDERS: PCP Internal Medicine; Referring Provider Internal Medicine; Visit Provider Registered Nurse
DX: S06.0X0A Concussion without loss of consciousness, initial encounter (principal); G40.909 Epilepsy, unspecified, not intractable, without status epilepticus; R42 Dizziness and giddiness; Z79.899 Other long term (current) drug therapy
CPT/HCPCS: 36415; 80053; 85025; 99212

== ENCOUNTER 2025-10-20 09:31 | Outpatient (AMB) | payer MEDICARE, MEDICAID, SELFPAY ==
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
--- OUTSIDE RECORDS SUMMARY | 2025-10-20 10:17 | XMS_ITS | Encounter Summary ---
Author Organization [employer] Address [address] [place] [address] 7 [place] [address] Care Team Providers Care Judicial Clerk Name Role Phone Madeline Ferro MD Primary Care Provide r Reason for Visit * Reason Comments Med Change Request Encounter Details Date Type Department Care Team ([facility] st Contact Info) Description 04/24/2025 Refill [facility] [address] [place], [place] [phone] Madeline Ferro MD [address] [place] [address] Class 2 severe obesity due to excess [...] documented as of this encounter Care Teams Judicial Clerk Relationship Specialty Start Date End Date Madeline Ferro MD [address] [place] [address] PCP - General Family Medicine 12/20/18 documented as of this encounter
--- OUTSIDE RECORDS SUMMARY | 2025-10-20 10:17 | XMS_ITS | Clinical Summary ---
Author Organization [employer] Address [address] [place] [address] [address]t [place] [address] Care Team Providers Care Petal Cutter Name Role Phone Madeline Ferro MD Primary [...] XRAY ordered patient will be contacted with [facility] 06/26/2023 Assessment & Plan (06/26/2023 10:08 AM [...] only takes it if needed) Seizure disorder ([facility]) 11/26/2012 Assessment & Plan (06/26/2023 10:07 AM EDT): Continue to follow with neurologist Continue with current medication regimen Depressive disorder 11/26/2012 Constipation 11/26/2012 Encounters Date Type Department Care Team Description 10/02/2025 Telephone [facility] [address] [place] [address] Madeline Ferro MD Results 10/01/2025 Results Follow-Up [facility] [address] [place] [address] Madeline Ferro MD HPV DNA, Low/High Risk 09/16/2025 10:00 AM EDT Procedure Visit [facility] [address] [place] [address] Madeline Ferro MD Encounter for Papanicolaou smear of cervix 09/16/2025 Travel 08/03/2025 Telephone [facility] OPTOMETRY [address] [place] [address] Delmy Potts, BENJAMIN from Last 3 Months Immunizations Immunization Administration [...] - 3-dose series) 1997 COVID-19 Vaccine ( - season) 2025 Influenza Vaccine (#1) 2025 4, 09/08/2013, 11/26/2012, Additional history exists Alcohol/Substance Use Screening 04/22/2026 04/22/2025 Depression Screening 04/22/2026 04/22/2025, 04/22/20 Disability Screening 04/22/2026 04/22/2025 SDOH Screening 04/22/2026 04/22/2025 Tobacco Screening 09/16/2026 09/16/2025 Mammogram 07/17/2027 07/17/2025, 0807/2025, 07/03/2025 Lipid Panel 04/22/2030 04/22/2025, 06/26/2023 Cervical Cancer Screening 09/15/2030 Pap Smear 09/15/2030 09/15/2025, 06/29/2025 HPV/Cotest 09/16/2030 09/16/2025, 10/02/2019 Zoster Vaccines (1 of 2) 2032 DTaP/Tdap/Td [...] Procedure Name Priority Date/Time Associated Diagnosis Comments HPV DNA, LOW/HIGH RISK Routine 09/16/2025 10:48 AM EDT PAP SMEAR Routine 09/15/2025 10:48 AM EDT Encounter for Papanicolaou smear of cervix BI US BREAST LIMITED BILATERAL Routine 07/17/2025 8:10 AM EDT HEPATITIS C AB W/REFL TO HCV RNA, [...] (BMI) of 36.0 to 36.9 in adult ([facility]/HCC) from Last 3 Months or Most Recently Relevant to Health Maintenance Results * HPV DNA, Low/High Risk (09/16/2025 10:48 AM EDT) HPV High Risk Negative Negative [facility] HPV Genotype 16 Negative Negative [facility] HPV Genotype 18 Negative Negative [facility] Comment:HPV testing performe d at [facility] (CLIA#[id number]), [address] [place] [address].Testing for HPV was performed using the Jg JENNIFER 6800system. The presence of HPV in the female genital tract isassociated with a number of diseases, including cervicalcarcinoma. The HPV DNA high risk pool tests for HPV 31, 33,35, 39, 45, 51, 52, 56, 58, 59, 66 and 68. The testing forHPV 16 and 18 genotypes has also been performed. A positiveresult indicates detection of nucleic acid sequences fromone or more subtypes, whereas a negative result indicatessuch sequences were not detected. 09/16/2025 10:4 8 AM EDT 09/16/2025 2:00 PM EDT Madeline Land MD LAB BLOOD ORDERABLES Final Result [facility] [address] [place] [phone] * Pap Smear (09/15/2025 10:48 AM EDT) Swab 09/15/2025 10:4 8 AM EDT 09/16/2025 2:00 PM EDT Narrative [facility] - 09/23/2025 1:09 PM EST ----- ------- Name: Leslie Baker Age/Sex: 45/F : 1980 Unit#: [id number] Attend Dr: Madeline Ferro MD Re09/16/25 Status: DEP [facility]F [facility] Disch: ----- ------- SPEC : [id number] RECD: 09/16/25 STATUS: RICARDA JASMINE NUM: [id number] LUCIA: 09/15/25-[address] [facility] [address]: Madeline Ferro MD ENTERED: 09/16/25-9733 SP TYPE: Pap Smr OTHR : ORDERED: Pap Smear Interpretation Satisfactory for evaluation. Negative for intraepithelial lesion or malignancy. No endocervical cells seen. HPV High Risk: Negative HPV Genotyping 16: Negative HPV Genotyping 18: Negative Clinical Information LMP: Unknown date Previous PAP test: Unknown date/findings Other history: Encounter for Papanicolaou smear of cervix Material Received ThinPrep-Vaginal/Cervical PAP Disclaimer As of September 10, 2024, the technical services to include automated prescreening performed by the ThinPrep Imaging System, PAP screening and HPV testing will be performed at [facility] (IA #[id number]), [address] [place] [address]. Testing for HPV was performed using the RystoAS 6800 system. The presence of HPV in [...] professional services are performed by [facility] ([address] [place], [place] [id number]; ; CLIA #[id number]). The PAP Test is a screening procedure with the inherent possibility of both false negative and false positive results. Results should be interpreted in the context of historic and current clinical findings. Reliability of the PAP Test is enhanced by performing the test on a regular repetitive basis. CONTINUED ON NEXT PAGE ----- ------- Name: Leslie Baker Age/Sex: 45/F : 1980 Unit#: [id number] Attend Dr: Madeline Ferro MD Re09/16/25 Status: DEP REF Location: [facility] Disch: ----- ------- SPEC : [id number] RECD: 09/16/25-1399 STATUS: RICARDA JASMINE NUM: [id number] LUCIA: 09/15/25-[address] [facility] [address]: Madeline Ferro MD ENTERED: 09/16/25-3106 SP TYPE: Pap Smr [facility] DR: ORDERED: Pap Smear ----- ------- Signed (signature on file) MICHELLE Her ([facility]) 09/23/25 1309 ----- ------- END OF REPORT Madeline Land MD LAB CYTOLOGY ORDERABL ES Final Result [facility] [address] [place] [phone] * BI US Breast Limited Bilateral (07/17/2025 8:10 AM EDT) Anatomical Region Laterality Modality Breast Bilateral Ultrasound 07/17/2025 8:10 AM EDT Narrative 07/17/2025 8:49 AM EDT [facility] [address] [place] [address] Ultrasound Report Signed Patient: Leslie Baker MR#: [id number] : 1980 Acct:[id number] Age/Sex: 45 / F ADM Date: 07/17/25 Loc: [facility] Attending Dr: Madeline Land MD Ordering Physician: Madeline Ferro MD Date of Service: 07/17/25 Procedure(s): US breast BI limited mamm only Accession Number(s): [id number] cc: Madeline Ferro MD EXAMINATIONS: 1. MM [...] 07/17/25 0846 DD/ 0810 TD/TT: 07/17/25 0837 Anatomic Pathologist: Procedure Note Donotuseinterpreter, Image - 07/17/2025 [facility] [address] [place] [address] Ultrasound Report Signed Patient: Leslie Baker#: [id number] : 1980Acct:[id number] Age/Sex: 45 / FADM Date: 07/17/25 Loc: [facility].MAMMO Attending Dr: Madeline Land MD Ordering Physician: Madeline Ferro MD Date of Service: 07/17/25 Procedure(s): US breast BI limited mamm only Accession Number(s): [id number] cc: Madeline Ferro MD EXAMINATIONS: 1. MM [...] 07/17/25 0846 DD/ 0810 TD/TT: 07/17/25 0837 Anatomic Pathologist: us Madeline Land MD IMG US PROCEDURES Jr beba Result - Final * Hepatitis C Antibody with Reflex to HCV, RNA, Quantitative, Real-Time PCR (04/22/2025 11:25 AM EDT) Hepatitis C Antibody Nonreactive Nonreactive [facility] Comment:Antibodies to HCV no t detected; does not exclude early acuteHCV infection. Blood Venous blood specimen / Unknown 04/22/2025 11:25 AM EDT 04/22/2025 1:11 PM EDT Madeline Land MD LAB BLOOD ORDERABLES Final Result Performing Organization Address [facility]/ZIP Co de Phone Number [facility] [address] [place] [phone] * HIV-1/2 Antigen and Antibodies, Fourth Generation, with Reflexes (04/22/2025 11:25 AM EDT) HIV AB/AG Nonreactive Nonreactive [facility] Comment:HIV-1 p24 Ag and/or HIV-1/HIV-2 Ab not detected.A test result that is nonreactive does not exclude thepossibility of exposure to or infection with HIV-1 and/orHIV-2. Nonreactive results in this assay for individualswith prior exposure to HIV-1 and/or HIV-2 may be due toantigen and antibody levels that are below the limit ofdetection of this assay.The [employer] HIV Ag/Ab Combo assay result andsupplemental assay results should be interpreted inconjunction with the patient's clinical presentation,history and other laboratory results. If the results areinconsistent with clinical evidence, additional testing issuggested to confirm the result. Blood Venous blood specimen / Unknown 04/22/2025 11:25 AM EDT 04/22/2025 1:11 PM EDT Madeline Land MD LAB BLOOD ORDERABLES Final Result Performing Organization Address [facility]/ZIP Co de Phone Number [facility] [address] [place] [phone] * (ABNORMAL) Lipid Panel, Standard (04/22/2025 11:25 AM EDT) Triglycerides 61 <150 mg/dL [facility] Comment:Desirable Triglyceri de: less than 150 mg/dLBorderline High Triglyceride 150-199 mg/dLHigh Triglyceride: 200-499 mg/dLVery High Triglyceride: greater than or equal to 5OO mg/dL Cholesterol 196 <200 mg/dL [facility] Comment:Desirable Cholestero l: less than 200 mg/dLBorderline High Cholesterol: 200-239 mg/dLHigh Cholesterol: greater than 239 mg/dL LDL Cholesterol Calculated 131(H) <100 mg/dL [facility] Comment:Desirable LDL: less than 100 mg/dLNear Optimal/Above Optimal LDL: 110- 129 mg/dLBorderline High LDL: 130-159 mg/dLHigh LDL: 160-189 mg/dLVery High LDL: greater than or equal to 190 mg/dL HDL Cholesterol 53 >40 mg/dL [facility] Comment:Desirable HDL: great er than 40 mg/dL Note: This HDL assay may give artificially low results in patients with liver disease. Blood Venous blood specimen / Unknown 04/22/2025 11:25 AM EDT 04/22/2025 1:11 PM EDT Madeline Land MD LAB BLOOD ORDERABLES Final Result [facility] [address] [place] [address] [phone] from Last 3 Months or Most Recently Relevant to Health Maintenance Insurance [facility] STANDARD MEDICARE GENERIC TPL Care Teams Petal Cutter Relationship Specialty Start Date End Date Madeline Ferro MD [address] [place] [phone] PCP - General Family Medicine 12/20/18
--- OUTSIDE RECORDS SUMMARY | 2025-10-20 10:17 | XMS_ITS | Encounter Summary ---
Author Organization [employer] Address [address] [facility] 7t [place] [address] Care Team Providers Care Public Safety Telecommunicator Name Role Phone Madeline Ferro MD Primary Care Provide r Reason for Visit * Reason Comments Med Refill Encounter Details Date Type Department Care Team ([facility] st Contact Info) Description 01/22/2025 Refill [facility] [address] [place] [address] Madeline Ferro MD [address] [place] [address] Social History Tobacco Use Types Packs/Day Years [...] documented as of this encounter Care Teams Public Safety Telecommunicator Relationship Specialty Start Date End Date Madeline Ferro MD [address] [place] [phone] PCP - General Family Medicine 12/20/18 documented as of this encounter
--- OUTSIDE RECORDS SUMMARY | 2025-10-20 10:17 | XMS_ITS | Encounter Summary ---
Author Organization [employer] Address [address] [place] [address] [address] [place] [address] Care Team Providers Care Shell Machine Operator Name Role Phone Madeline Ferro MD Primary Care Provide r Reason for Visit * Reason Onset Date Comments Referral 03/09/2023 Encounter Details Date Type Department Care Team ([facility] st Contact Info) Description 03/09/2023 Telephone [facility] MEDICINE [address] [place] [address] Madeline Ferro MD [address] [place] [address] Referral Social History Tobacco Use Types Packs/Day [...] order on 02/28/2023 Please contact pt at [phone] documented in this encounter Plan of Treatment Not on file documented as of this encounter Visit Diagnoses Not on filedocumented in this encounter Additional Health Concerns Assessment Noted Time PHQ-9 Depression Total Score: 14 023 11:09 AM EDT documented as of this encounter Care Teams Shell Machine Operator Relationship Specialty Start Date End Date Madeline Ferro MD [address] [place] [phone] PCP - General Family Medicine 12/20/18 documented as of this encounter
--- OUTSIDE RECORDS SUMMARY | 2025-10-20 10:17 | XMS_ITS | Encounter Summary ---
Author Organization [email or web address] Address [address] [facility] [address]t [place] [address] Care Team Providers Care Sole Conditioner Name Role Phone Madeline Ferro MD Primary Care Provide r Encounter Details Date Type Department Care Team ([facility] st Contact Info) Description 10/01/2025 Results Follow-Up [facility] [address] [place] [address] Madeline Ferro MD [address] [place] [address] HPV DNA, Low/High Risk Social History Tobacco Use Types Packs/Day Years [...] documented as of this encounter Care Teams Sole Conditioner Relationship Specialty Start Date End Date Madeline Ferro MD [address] [place] [address] PCP - General Family Medicine 12/20/18 documented as of this encounter
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
--- OUTSIDE RECORDS SUMMARY | 2025-10-20 10:17 | XMS_ITS | Encounter Summary ---
Author Organization [employer] Address [address] [facility] [address] [place] [address] Care Team Providers Care Acid Cleaner Name Role Phone Madeline Ferro MD Primary Care Provide r Encounter Details Date Type Department Care Team ([facility] st Contact Info) Description 07/06/2025 Orders Only [facility] MED & PEDS [address] [place] [address] Madeline Ferro MD [address] [place] [address] Social History Tobacco Use Types Packs/Day Years [...] Diagnosis Comments HPV DNA, LOW/HIGH RISK Routine 10:48 AM EDT BI US BREAST LIMITED BILATERAL Routine 07/17/2025 8:10 AM EDT BI MAMMOGRAM DIAGNOSTIC TOMOSYNTHESIS BILATERAL Routine 07/17/2025 8:05 AM EDT documented in this encounter Results * HPV DNA, Low/High Risk (09/16/2025 10:48 AM EDT) HPV High Risk Negative Negative [facility] HPV Genotype 16 Negative Negative [facility] HPV Genotype 18 Negative Negative [facility] Comment:HPV testing performe d at [facility] (CLIA#[id number]), [address] [place] [id number].Testing for HPV was performed using the [employer]. The presence of HPV in the female [...] Land MD LAB BLOOD ORDERABLES Final Result [facility] [address] [place] [phone] * BI US Breast Limited Bilateral (07/17/2025 8:10 AM EDT) Anatomical Region Laterality Modality Breast Bilateral Ultrasound 07/17/2025 8:10 AM EDT Narrative 07/17/2025 8:49 AM EDT [address] [place] [address] Ultrasound Report Signed Patient: Leslie Baker MR#: [id number] : 1980 Acct:[id number] Age/Sex: 45 / F ADM Date: 07/17/25 Loc: HO.MAMMO Attending Dr: Madeline Land MD Ordering Physician: Madeline Ferro MD Date of Service: 07/17/25 Procedure(s): US breast BI limited mamm only Accession Number(s): [id number] cc: Madeline Ferro MD EXAMINATIONS: 1. MM [...] in OV> 07/17/2546 DD/ 9 TD/TT: 07/17/2537 Spouter: Procedure Note Donotuseinterpreter, Image - 07/17/2025 [facility] [address] [place], [place] [address] Ultrasound Report Signed Patient: Leslie BakerMR#: M [id number] : 1980Acct:[id number] Age/Sex: 45 / FADM Date: 07/17/25 Loc: HO.MAMMO Attending Dr: Madeline Land MD Ordering Physician: Madeline Ferro MD Date of Service: 07/17/25 Procedure(s): US breast BI limited mamm only Accession Number(s): [id number] cc: Madeline Ferro MD EXAMINATIONS: 1. MM [...] 07/17/25 0846 DD/ 0810 TD/TT: 07/17/25 0837 Spouter: us Madeline Land MD IMG US PROCEDURES Jr beba Result - Final * BI Mammogram Diagnostic Tomosynthesis Bilateral (07/17/2025 8:05 AM EDT) Anatomical Region Laterality Modality Breast Bilateral Mammography 07/17/2025 8:05 AM EDT Narrative 07/17/2025 8:49 AM EDT [facility] [address] [place] [address] Mammography Report Signed Patient: Leslie Baker MR#: [id number] : 1980 Acct:[id number] Age/Sex: 45 / F ADM Date: 07/17/25 Loc: [facility] Attending Dr: Madeline Land MD Ordering Physician: Madeline Ferro MD Results: 3.6MProbably Benign Finding - Short 6 M F/U Suggested Date of Service: 07/17/25 Follow Up: 6 Month F/U Procedure(s): MM tomosynthesis diagnostic BI Accession Number(s): [id number] cc: Madeline Ferro MD EXAMINATIONS: 1. MM [...] in OV> 07/17/25845 DD/ 4 TD/TT: 07/17/25804 Spouter: Procedure Note Donotuseinterpreter, Image - 07/17/2025 [facility] [address] [place] [address] Mammography Report Signed Patient: Leslie Baker#: M [id number] : 1980Acct:[id number] Age/Sex: 45 / FADM Date: 07/17/25 Loc: HO.MAMMO Attending Dr: Madeline Land MD Ordering Physician: Madeline Ferro MD Results: 3.6MProbably Benign Finding - Short 6 M F/U Suggested Date of Service: 07/17/25Follow Up: 6 Month F/U Procedure(s): MM tomosynthesis diagnostic BI Accession Number(s): [id number] cc: Madeline Ferro MD EXAMINATIONS: 1. MM [...] in OV> 07/17/25845 DD/ 4 TD/TT: 07/17/25804 Spouter: us Madeline Land MD IMG BI PROCEDURES Jr beba Result - Final documented in this encounter Visit Diagnoses Not on filedocumented in this encounter Additional Health Concerns Assessment Noted Time PHQ-9 Depression Total Score: 8 06/04/20 25 10:18 AM EDT documented as of this encounter Care Teams Acid Cleaner Relationship Specialty Start Date End Date Madeline Ferro MD [address] [place] [address] PCP - General Family Medicine 12/20/18 documented as of this encounter
== END 2025-10-20 10:14 | disposition home or self-care (01) ==
LOC: HO.HSM 09:32
PROVIDERS: PCP Internal Medicine; Referring Provider Internal Medicine; Visit Provider Registered Nurse
DX: G40.909 Epilepsy, unspecified, not intractable, without status epilepticus (principal); S06.0X0A Concussion without loss of consciousness, initial encounter; R42 Dizziness and giddiness
CPT/HCPCS: 99214